=== PATIENT | female | born 1990 | race Asian ===

== ENCOUNTER 2023-11-07 22:41 | Observation (INO) | payer BC, SELFPAY ==
[2023-11-07 22:42] VITALS: BP 129/86; PULSE 104; RESP 18; TEMP 36.6; O2SAT 98; BMI 26.5
--- NOTE | 2023-11-07 23:02 | US_ITS ---
STUDY: ABDOMINAL ULTRASOUND - RIGHT UPPER QUADRANT REASON FOR VISIT: Female, 32 years old patient with abdominal pain. TECHNIQUE: Ultrasound evaluation of the right upper quadrant was performed with real-time and static badillo-scale imaging. TECHNICAL QUALITY: Adequate. COMPARISON: Prior comparison studies are not available for review at this time. FINDINGS: Liver: The liver measures 16.4 cm. There is increased echogenicity consistent with fatty infiltration. The bile ducts are within normal limits. There is hepatic color flow. The direction of portal flow is hepatopetal. There is no demonstrated mass lesion. Gallbladder: Normal distended gallbladder. The gallbladder wall measures 2 mm. There is a negative sonographic Catherine''s sign. There is no pericholecystic fluid. There are no gallstones. Common Bile Duct (C.B.D.): The common bile duct measures 3.6 mm. Pancreas: Normal size of the head, body and tail of the pancreas. There is normal echogenicity of the pancreas. There is no demonstrated pancreatic mass or cyst. Right Kidney: Normal size of the right kidney. The right kidney measures 10.2 x 4.1 x 4.4 cm. Normal renal cortex. The right cortex measures 1.4 cm. There is no demonstrated renal mass or cyst. There is no right hydronephrosis. US/Gallbladder IMPRESSION: 1. Hepatic steatosis. 2. No sonographic evidence for acute right upper quadrant abdominal disease. Electronically Signed: Yamile Booth MD at 0:23 EST ,
[2023-11-07] MEDS: Ketorolac 15 MG/ML Vial IV (23:17)
[2023-11-07] MEDS: Ondansetron 4 MG/2 ML Vial IV (23:17)
[2023-11-07] MEDS: 0.9% Normal Saline (1000mL) 1,000 ML 125 ML IV (23:18)
[2023-11-07 23:19] LABS: Absolute Lymphocyte Count 2.03 X10^3/uL (0.83-4.51); Absolute Neutrophil Count 13.6 X10^3/uL (2.0-7.7); Basophil# 0.05 X10^3/uL; Basophil% 0.3 % (0-1); Eosinophil# 0.01 X10^3/uL; Eosinophils% 0.1 % (0-5); Hematocrit 39.2 % (37-47); Hemoglobin 13.1 g/dL (12.0-15.0); Lymphocyte # 2.03 X10^3/ul (0.83-4.51); Lymphocyte % 12.3 % (19-41); Mean Corp Hgb Conc 33.4 g/dL (32-36); Mean Corpuscular Hgb 27.9 pg (27.0-32.0); Mean Corpuscular Volume 83.6 fL (81-99); Mean Platelet Vol. 8.9 fl (6.2-12.0); Monocyte# 0.74 X10^3/uL; Monocyte% 4.5 % (0-10); NRBC Flagged by Analyzer 0 % (0-5); Neutrophil # 13.55 X10^3/uL (2.7-7.7); Neutrophil % 82.4 % (47-70); Platelet Count 281 K/mm3 (150-450); RBC Distribution Width CV 11.9 % (11.6-14.6); RBC Distribution Width SD 35.4 fl (35.1-43.9); Red Blood Count 4.69 M/mm3 (4.2-5.4); White Blood Count 16.5 K/mm3 (4.4-11.0)
[2023-11-07 23:38] LABS: ALB/GLOB Ratio 1.1 RATIO (0.9-2.4); AST(SGOT) 9 U/L (15-37); Alanine Aminotransfer ALT/SGPT 14 U/L (13-56); Albumin, Serum 3.8 g/dL (3.2-5.0); Alkaline Phosphatase 55 U/L (45-117); Anion Gap 7 (5-15); BUN 8 mg/dL (7-18); BUN/Creat Ratio 12.6 RATIO (10-20); Calcium,Total 9.5 mg/dL (8.5-10.1); Chloride 106 mmol/L (98-107); Creatinine, Serum 0.64 mg/dL (0.55-1.02); EST Glomerular Filtration Rate 116 mL/min (>60); Est Glom Filt Rate - Afr Amer 140 mL/min (>60); Estimated Creatinine Clearance 106.32 ml/min; Globulin 3.6 g/dL (2.2-4.2); Glucose 117 mg/dL (74-106); Lipase 26 U/L (13-75); Potassium 3.7 mmol/L (3.5-5.1); Protein, Total 7.4 g/dL (6.4-8.2); Sodium Level 138 mmol/L (136-145)
[2023-11-07 23:42] LABS: Internal QC Validated? YES +Cl - CLEAR BKGD; Pregnancy, Serum, hCG Quali. NEGATIVE Negative
[2023-11-08] VITALS (12 sets, daily range): BP systolic 91–113; BP diastolic 58–87; PULSE 74–111; RESP 14–16; TEMP 36.3–37.4; O2SAT 91–99; BMI 26.3
--- NOTE | 2023-11-08 | APP_PTH ---
PATHOLOGY RESULTS PATIENT: TAWANA CAMILO LOC: [facility] U#:[id number] AGE/SX: 32/F ROOM: [place] [id number] RE11/08/[address]: Dr. Guy Harrell MD : 1990 BED: 1 DIS: 11/08/2023 SPEC #: [id number] RECD: 11/08/23 11:02 STATUS: KAYLIE MARTIN #: [id number] ARELIS: 11/08/23 00:[address]: Guy Harrell DEPT: SURGICAL PATHOLOGY RECD BY: Bianca Haynes ENTERED: 11/08/23 11:02 SP TYPE: APPENDIX OTHR DR: Dr. Kevan Lawler DO Tissues: Appendix, NOS Procedures: Surgery Specimen Level III HEADER OPERATION: Laparoscopic appendectomy PRE-OP DIAGNOSIS: Acute appendicitis TISSUE SUBMITTED: Appendix MICROSCOPIC DIAGNOSIS Appendix, appendectomy: Acute necrotizing appendicitis. Acute serositis. AM:ness 11/09/2023 MICROSCOPIC DESCRIPTION Slides are reviewed. GROSS DESCRIPTION Received in fixative is one container labeled with the patient's name and designated appendix. The specimen consists of a C-shaped appendix measuring 7.5 cm in length and up to 1.3 cm in diameter. The serosa is congested. No obvious perforation is noted. The lumen is filled with hemorrhagic fluid. No fecalith is identified. Shop Superintendent sections are submitted in one cassette. / SJ:ness 11/08/2023 TC:2 CPT: 13667
--- NOTE | 2023-11-08 00:28 | ED.VIS.GI ---
HPI <Dr. Delano Dhaliwal MD - Last Filed: 11/08/23 22:28> HPI - GI History of Present Illness Chief Complaint: Abd Pain Informant: patient Abdominal Pain/Flank Pain Onset: Today Context: Gradual Onset Timing: Continuous Quality: Aching Location: Epigastric, RUQ and LUQ Current Severity: Moderate Maximum Severity: Moderate Worsened by: - (Lying down) Nausea/Vomiting/Emesis GI Symptom: Positive for Nausea; Negative for Vomiting Diarrhea/Melena/Hematochezia GI Symptom: Negative for Diarrhea, Melena or Hematochezia Associated Symptoms Associated Symptoms: Negative for Dysuria, Frequency, Hematuria or Urgency Narrative Narrative: Healthy 32-year-old has been having abdominal discomfort upper bilateral for half of the day today, seem to be a while after a meal. Now whenever she lies down it seems to get worse. Sitting up makes it much better but still uncomfortable. She denies any fevers or chills. No pruritus, confusion, pain in her back or up into her chest. No history of any abdominal surgeries. Never had this before. She took some Tums and did not help. [facility] <Dr. Delano Dhaliwal MD - Last Filed: 11/08/23 22:28> [facility] Medical History (Updated 11/08/23 @ 22:[address] Delano Dhaliwal MD) Asthma History of pneumonia Home Medications acetaminophen 325 mg tablet 650 mg (2 x 325 mg) PO Q4H PRN PRN Pain 1-10 Or Fever #0 tabs 11/08/23 [Rx Last Taken Unknown] dicyclomine 10 mg capsule 20 mg (2 x 10 mg) PO Q6H PRN PRN abdominal pain #20 CAPSULES 11/08/23 [Rx Last Taken Unknown] oxycodone 5 mg tablet 5 - 10 mg (1 - 2 x 5 mg) PO Q4H PRN PRN Pain Score 4-10 5 days #15 tabs 11/08/23 [Rx Last Taken Unknown] pantoprazole 40 mg tablet,delayed release 40 mg PO BID 14 days #28 tabs 11/08/23 [Rx Last Taken Unknown] sucralfate 1 gram tablet 1 g PO .qid 10 days #40 tabs 11/08/23 [Rx Last Taken Unknown] Allergy/AdvReac Type Severity Reaction Status Date / Time cat dander Allergy Unknown Verified 11/07/23 22:44 Family History (Updated 11/26/19 @ 07:05 by Teresa You) Other CVA (cerebral vascular accident) Diabetes Hypertension Social History (Updated 10/15/20 @ 16:03 by Hollis RAMOS, PA) Smoking Status: Never smoker alcohol intake: current alcohol intake frequency: a few times a month Alcohol type: beer ROS <Dr. Delano Dhaliwal MD - Last Filed: 11/08/23 22:28> ROS ED Constitutional Constitutional ED: Denies chills or fever(s) Eyes Eyes: Denies change in vision or diplopia ENT ENT ED: Denies rhinorrhea or sore throat Cardiovascular Cardiovascular: Denies chest pain or palpitations Respiratory/Chest Respiratory/Chest: Denies cough or dyspnea Gastrointestinal Gastrointestinal: Reports abdominal pain, nausea and other Details: constipated earlier today, but had BM prior to coming here ; Denies diarrhea or vomiting Genitourinary Genitourinary ED: Denies dysuria, hematuria or urinary frequency Musculoskeletal Musculoskeletal: Denies back pain or neck pain Integumentary Denies abscess or rash Neurologic Neurologic: Denies headache(s), paresthesias or weakness Psychiatric Psychiatric: Denies anxiety or suicidal thoughts EXAM <Dr. Delano Dhaliwal MD - Last Filed: 11/08/23 22:28> Physical Exam Const Vital Signs: 11/07/23 22:42 11/08/23 00:41 11/08/23 02:00 Temperature 97.8 F Temperature Source Temporal Pulse Rate 104 H 84 90 Respiratory Rate 18 16 Respiratory Effort Respiratory Depth Respiratory Pattern Blood Pressure 129/86 H 113/87 H Blood Pressure Mean 100 95 Blood Pressure Source Blood Pressure Position Blood Pressure Location Pulse Ox 98 99 98 Oxygen Delivery Method Room Air Room Air 11/08/23 04:00 11/08/23 04:25 11/08/23 04:19 Temperature 99.3 F H Temperature Source Oral Pulse Rate 82 95 Respiratory Rate 16 16 Respiratory Effort Normal Non-Labored Respiratory Depth Normal Respiratory Pattern Normal Blood Pressure 107/76 106/79 Blood Pressure Mean 86 88 Blood Pressure Source Monitor Blood Pressure Position Semi-Fowlers Blood Pressure Location Right Arm Pulse Ox 98 95 Oxygen Delivery Method Room Air Room Air 11/08/23 04:25 Temperature 99.3 F H Temperature Source Oral Pulse Rate 95 Respiratory Rate 16 Respiratory Effort Respiratory Depth Respiratory Pattern Blood Pressure 106/79 Blood Pressure Mean 88 Blood Pressure Source Blood Pressure Position Blood Pressure Location Pulse Ox 95 Oxygen Delivery Method Room Air Positive well nourished and well developed General Appearance ED: well developed and NAD HEENT Reports moist mucous membranes normocephalic and atraumatic Eyes PERRL and EOMs intact bilaterally Neck full ROM and supple Resp normal respiratory effort and clear to auscultation bilaterally Cardio regular rate, regular rhythm and no murmurs GI non-distended GI Narrative: Tender in both upper quadrants, no guarding or rebound tenderness, no pulsatile mass or distention, otherwise benign abdomen. Auscultation: normoactive bowel sounds Palpation: soft Back/Spine no CVA tenderness General Back: other FROM Extremity normal to inspection General Extremety ED: Negative for edema, pulses abnormal or tenderness General Extremity: Negative for edema or pulses abnormal Neuro oriented x3, CN's II-XII intact bilaterally and no sensory deficits noted Sensorium / Orientation: awake and alert Motor Exam: strength 5/5 throughout Skin no rashes or lesions noted and no wounds <Dr. Eugene Rm DO - Last Filed: 11/08/23 03:42> Physical Exam Const Vital Signs: 11/07/23 22:42 11/08/23 00:41 11/08/23 02:00 Temperature 97.8 F Temperature Source Temporal Pulse Rate 104 H 84 90 Respiratory Rate 18 16 Respiratory Effort Respiratory Depth Respiratory Pattern Blood Pressure 129/86 H 113/87 H Blood Pressure Mean 100 95 Blood Pressure Source Blood Pressure Position Blood Pressure Location Pulse Ox 98 99 98 Oxygen Delivery Method Room Air Room Air 11/08/23 04:00 11/08/23 04:25 11/08/23 04:19 Temperature 99.3 F H Temperature Source Oral Pulse Rate 82 95 Respiratory Rate 16 16 Respiratory Effort Normal Non-Labored Respiratory Depth Normal Respiratory Pattern Normal Blood Pressure 107/76 106/79 Blood Pressure Mean 86 88 Blood Pressure Source Monitor Blood Pressure Position Semi-Fowlers Blood Pressure Location Right Arm Pulse Ox 98 95 Oxygen Delivery Method Room Air Room Air 11/08/23 04:25 Temperature 99.3 F H Temperature Source Oral Pulse Rate 95 Respiratory Rate 16 Respiratory Effort Respiratory Depth Respiratory Pattern Blood Pressure 106/79 Blood Pressure Mean 88 Blood Pressure Source Blood Pressure Position Blood Pressure Location Pulse Ox 95 Oxygen Delivery Method Room Air MDM <Dr. Delano Dhaliwal MD - Last Filed: 11/08/23 22:28> [facility] MDM Narrative Medical decision making narrative: Labs show leukocytosis, liver enzymes and lipase are normal. negative. Given the leukocytosis and location of her pain and ultrasound of the right upper quadrant was obtained emergently. There may be some fatty infiltration of the liver there according to radiology, but there is no acute cholecystitis radiographically and the sonographic Catherine's is negative. Patient was initially empirically treated with IV fluids, Zofran, Toradol. [place] her nausea but still in discomfort. She noted that when she was an ultrasound and lying left lateral decubitus, all the pain seem to be left upper quadrant. We discussed dyspepsia as well as peptic ulcer disease being in the differential, she then notes that prior to coming to the emergency department, she had a stool at home that was black and loose. She has taken no Pepto bismol today, and last time she took oral iron was 3 months ago. She does not have an elevated BUN to suggest significant upper GI bleeding, as I discussed with her but the definitive way to diagnose whether this is due to bleeding or not, which would lend itself more to a bleeding ulcer, would be to check a stool sample. She does not have to have a bowel movement and she refuses rectal exam at this time. She was amenable to doing a GI cocktail which was given along with Protonix. Assuming she has some improvement, plan will be to send her home with close outpatient follow-up on twice daily PPI, sucralfate, and dicyclomine to use as needed for pain. Lab Data Attestation: I reviewed the patient's lab results. Labs: Laboratory Results - last 24 hr 11/07/23 23:13 WBC 16.5 H RBC 4.69 Hgb 13.1 Hct 39.2 MCV 83.6 MCH 27.9 MCHC 33.4 RDW Std Deviation 35.4 RDW Coeff of Janes 11.9 Plt Count 281 MPV 8.9 Immature Gran % (Auto) 0.400 Neut % (Auto) 82.4 H Lymph % (Auto) 12.3 L Cole % (Auto) 4.5 Eos % (Auto) 0.1 Baso % (Auto) 0.3 Absolute Neuts (auto) 13.6 H Absolute Lymphs (auto) 2.03 Nucleated RBC % 0 Sodium 138 Potassium 3.7 Chloride 106 Carbon Dioxide 25.0 Anion Gap 7 BUN 8 Creatinine 0.64 Estim Creat Clear Calc 106.32 Est GFR (MDRD) Af Amer 140 Est GFR (MDRD) Non-Af 116 BUN/Creatinine Ratio 12.6 Glucose 117 H Calcium 9.5 Total Bilirubin 1.00 AST 9 L ALT 14 Alkaline Phosphatase 55 Total Protein 7.4 Albumin 3.8 Globulin 3.6 Albumin/Globulin Ratio 1.1 Lipase 26 Serum , Qual NEGATIVE Radiography Diagnostic Testing: Clinical Impression(s) from Imaging Studies Gallbladder Ultrasound 11/07/23 23:02 IMPRESSION: 1. Hepatic steatosis. 2. No sonographic evidence for acute right upper quadrant abdominal disease. Electronically Signed: Yamile Booth MD at 0:23 EST Reading Location ID and State: [id number] / [employer] , Service support , Abdomen/Pelvis CT 11/08/23 01:39 IMPRESSION: Findings are consistent with acute uncomplicated appendicitis. Electronically Signed: Yamile Booth MD at 3:20 EST Reading Location ID and State: [id number] / [employer] , Service support , ADDENDUM: 11/08/23 0328 IMPRESSION: Findings are consistent with acute uncomplicated appendicitis. N.B. : The above Results were Read Back by Yamile Booth MD to Eugene Rm DO, and understanding confirmed on 11/08/2023 03:21:22 (ET). Electronically Signed: Yamile Booth MD at 3:20 EST Reading Location ID and State: [id number] / [employer] , Service support , ADDENDUM: 11/08/23 0334 IMPRESSION: Findings are consistent with acute uncomplicated appendicitis. N.B. : The above Results were Read Back by Yamile Booth MD to Eugene Rm DO, and understanding confirmed on 11/08/2023 03:28:04 (ET). Electronically Signed: Yamile Booth MD at 3:20 EST Reading Location ID and State: [id number] / [employer] , Service support , <Dr. Eugene Rm, DO - Last Filed: 11/08/23 03:42> [facility] Narrative Medical decision making narrative: Labs show leukocytosis, liver enzymes and lipase are normal. negative. Given the leukocytosis and location of her pain and ultrasound of the right upper quadrant was obtained emergently. There may be some fatty infiltration of the liver there according to radiology, but there is no acute cholecystitis radiographically and the sonographic Catherine's is negative. Patient was initially empirically treated with IV fluids, Zofran, Toradol. [place] her nausea but still in discomfort. She noted that when she was an ultrasound and lying left lateral decubitus, all the pain seem to be left upper quadrant. We discussed dyspepsia as well as peptic ulcer disease being in the differential, she then notes that prior to coming to the emergency department, she had a stool at home that was black and loose. She has taken no Pepto bismol today, and last time she took oral iron was 3 months ago. She does not have an elevated BUN to suggest significant upper GI bleeding, as I discussed with her but the definitive way to diagnose whether this is due to bleeding or not, which would lend itself more to a bleeding ulcer, would be to check a stool sample. She does not have to have a bowel movement and she refuses rectal exam at this time. She was amenable to doing a GI cocktail which was given along with Protonix. Assuming she has some improvement, plan will be to send her home with close outpatient follow-up on twice daily PPI, sucralfate, and dicyclomine to use as needed for pain. Dr. Rm dictating: Patient signed out to me for monitoring and had received treatment for symptomatic control of epigastric pain and left upper quadrant pain. I did independently examine her as well and she did complain of symptoms in this area. She states that she felt better after the GI cocktail, PPI. She was also given some Bentyl here. Her pain did start to come back and on reexamination she does have some tenderness in the epigastric and left upper quadrant pain which is relieved by laying on the left side however she also has some right lower quadrant pain. We discussed getting a CT of the abdomen pelvis and she was amenable to this. CT of the abdomen pelvis shows uncomplicated acute appendicitis. Patient was given morphine, Zofran, a liter of normal saline. Discussed the case with Dr. Harrell who states that he will be here at 6 AM to see the patient and to take her to the OR. Patient is made n.p.o. Impression: 1. Leukocytosis 2. Acute appendicitis Lab Data Labs: Laboratory Results - last 24 hr 11/07/23 23:13 WBC 16.5 H RBC 4.69 Hgb 13.1 Hct 39.2 MCV 83.6 MCH 27.9 MCHC 33.4 RDW Std Deviation 35.4 RDW Coeff of Janes 11.9 Plt Count 281 MPV 8.9 Immature Gran % (Auto) 0.400 Neut % (Auto) 82.4 H Lymph % (Auto) 12.3 L Cole % (Auto) 4.5 Eos % (Auto) 0.1 Baso % (Auto) 0.3 Absolute Neuts (auto) 13.6 H Absolute Lymphs (auto) 2.03 Nucleated RBC % 0 Sodium 138 Potassium 3.7 Chloride 106 Carbon Dioxide 25.0 Anion Gap 7 BUN 8 Creatinine 0.64 Estim Creat Clear Calc 106.32 Est GFR (MDRD) Af Amer 140 Est GFR (MDRD) Non-Af 116 BUN/Creatinine Ratio 12.6 Glucose 117 H Calcium 9.5 Total Bilirubin 1.00 AST 9 L ALT 14 Alkaline Phosphatase 55 Total Protein 7.4 Albumin 3.8 Globulin 3.6 Albumin/Globulin Ratio 1.1 Lipase 26 Serum , Qual NEGATIVE Radiography Diagnostic Testing: Clinical Impression(s) from Imaging Studies Gallbladder Ultrasound 11/07/23 23:02 IMPRESSION: 1. Hepatic steatosis. 2. No sonographic evidence for acute right upper quadrant abdominal disease. Electronically Signed: Yamile Booth MD at 0:23 EST , Abdomen/Pelvis CT 11/08/23 01:39 IMPRESSION: Findings are consistent with acute uncomplicated appendicitis. Electronically Signed: Yamile Booth MD at 3:20 EST , ADDENDUM: 11/08/23 0328 IMPRESSION: Findings are consistent with acute uncomplicated appendicitis. N.B. : The above Results were Read Back by Yamile Booth MD to Eugene Rm DO, and understanding confirmed on 11/08/2023 03:21:22 (ET). Electronically Signed: Yamile Booth MD at 3:20 EST , ADDENDUM: 11/08/23 0334 IMPRESSION: Findings are consistent with acute uncomplicated appendicitis. N.B. : The above Results were Read Back by Yamile Booth MD to Eugene Rm DO, and understanding confirmed on 11/08/2023 03:28:04 (ET). Electronically Signed: Yamile Booth MD at 3:20 EST , Discharge Plan Triage Chief Complaint: Abd Pain ED Provider: Eugene Rm Dx/Rx/DC Orders Clinical Impression: Appendicitis, acute, Abdominal pain, LUQ, Melena Primary Care Provider: Kevan Lawler Disposition Disposition: Acute Care [facility] Discharge Date/Time: 11/08/23 04:09
--- OUTSIDE RECORDS SUMMARY | 2023-11-08 00:30 | XMS RPT_ITS | CCD ---
Author Name Unknown Address [address] [place] [address] Organization [facility] Care Team Providers Care Stamp Classifier Name Role Phone Kevan Montano DO Primary Care Provider [phone] KEVAN MONTANO Primary Care Unavailable KIANNA PATINO Attending Unavailable KEVAN MONTANO Primary Care Unavailable MICHI TOVAR Referring Unavailable KEVAN MONTANO Primary Care Unavailable KEVAN MONTANO Referring Unavailable KEVAN MONTANO Primary Care Unavailable KEVAN MONTANO Primary Care Unavailable KEVAN MONTANO Attending Unavailable KEVAN MONTANO Primary Care Unavailable TEJAL VILLAGRAN Attending Unavailable KEVAN MONTANO Primary Care Unavailable JANE DOHERTY Referring Unavailable JANE DOHERTY Attending Unavailable KEVAN MONTANO Primary Care Unavailable KEVAN MONTANO Primary Care Unavailable KEVAN MONTANO Primary Care Unavailable Allergies Allergy Classification Reported Allergen(s) Allergy Type Date of Onset Reaction(s) Facility (12 sources) Cat; Translations: [CATS] Allergy to substance 04-22-2014 [facility] Medications Current Medications Medication Drug Class(es) Dates Sig (Normalized) Sig (Original) amoxicillin 875 mg oral tablet (1 source) Penicillin-class Antibacterial Start: 04-13-2023 End: 04-20-2023 take 1 tablet by mouth twice daily amoxicillin (AMOXIL) 875 mg tablet Indications: Upper respiratory tract infection, unspecified type Take 1 tablet by mouth twice daily for 7 days. 14 tablet 0 04/13/2023 04/20/2023 Active Completed/Discontinued Medications Medication Drug Class(es) Dates Sig (Normalized) Sig (Original) [id number] 200 actuat albuterol 0.09 mg/actuat metered dose inhaler (12 sources) beta2-Adrenergic Agonist Start: 08-10-2022 take 2 puff(s) by inhalation every four hours as needed for wheezing albuterol HFA (VENTOLIN HFA) 90 mcg/actuation inhaler Indications: Viral URI with cough Inhale 2 Puffs as instructed every 4 hours as needed for wheezing/shortnes s of breath. 18 g 5 08/10/2022 Active Problems Active Problems Problem Classification Problem Date Documented Da te Episodic/Chronic Administrative/social admission (1 source) Advice given; Translations: [Other specified counseling] 08-01-2023 Episodic Anxiety disorders (15 sources) Mixed anxiety and depressive disorder; Translations: [Anxiety disorder, unspecified] Onset: 05-17-2015 Chronic Blindness and vision defects (1 source) Bilateral myopia of eyes; Translations: [Myopia, bilateral] 06-14-2023 Episodic Immunizations and screening for infectious disease (2 sources) Patient encounter status; Translations: [Encounter for immunization] Episodic Mood disorders (2 sources) Depressive disorder; Translations: [Depression, unspecified depression type] Chronic Mood disorders (1 source) Mood disorders; Translations: [Anxiety and depression] Onset: 05-17-2015 Nutritional deficiencies (13 sources) Vitamin D deficiency; Translations: [Vitamin D deficiency, unspecified] Onset: 09-04-2018 09-04-2018 Chronic Nutritional deficiencies (1 source) Iron deficiency; Translations: [Iron deficiency] Episodic Other nutritional; endocrine; and metabolic disorders (1 source) Weight gain; Translations: [Abnormal weight gain] 08-31-2023 Episodic Other nutritional; endocrine; and metabolic disorders (1 source) Abnormal weight gain; Translations: [Weight gain] Onset: 08-31-2023 Episodic Other screening for suspected conditions (not mental disorders or infectious disease) (1 source) Raised TSH level; Translations: [Other specified abnormal findings of blood chemistry] Episodic Other upper respiratory infections (2 sources) Viral upper respiratory tract infection; Translations: [Acute upper respiratory infection, unspecified] Episodic Otitis media and related conditions (1 source) Acute left otitis media; Translations: [Otitis media, unspecified, left ear] Episodic Unclassified (1 source) Acute cough; Translations: [Acute cough] Onset: 04-13-2023 Past or Other Problems Problem Classification Problem Date Documented Da te Episodic/Chronic Allergic reactions (11 sources) Eczema; Translations: [Dermatitis, unspecified] Onset: 09-04-2018 09-04-2018 Episodic Headache; including migraine (9 sources) Headache disorder; Translations: [Headache disorder] Onset: 12-08-2022 Episodic Malaise and fatigue (8 sources) Fatigue; Translations: [Other fatigue] Onset: 12-11-2022 Episodic Other acquired deformities (8 sources) Leg length inequality; Translations: [Unequal limb length (acquired), unspecified site] Onset: 12-11-2022 Episodic Other skin disorders (11 sources) Acne vulgaris; Translations: [Acne vulgaris] Onset: 04-22-2014 04-22-2014 Episodic Viral infection (12 sources) Verruca plantaris; Translations: [Plantar wart] Onset: 09-04-2018 09-04-2018 Episodic Results Test Name Value Interpretation Reference Range Facil ity Vital Signs Date Time Vital Sign Value Performing Clinician Cortney boone 08-31-2023 08:07-0400 Body weight 69.04 kg Jane Doherty CORE SHAPER SIDES.AVIONICS SUPERVISOR Work Phone: [facility] 08-31-2023 08:07-0400 Diastolic blood pressure 64 mm[Hg] Jane Doherty CORE SHAPER SIDES.AVIONICS SUPERVISOR Work Phone: [facility] 08-31-2023 08:07-0400 Heart rate 60 /min Jane Doherty CORE SH[employer]ER [employer].AVIONICS SUPERVISOR Work Phone: [facility] 08-31-2023 08:07-0400 Respiratory rate 14 /min Jane Doherty CORE SHAPER SIDES.AVIONICS SUPERVISOR Work Phone: [facility] 08-31-2023 08:07-0400 Systolic blood pressure 112 mm[Hg] Jane Doherty CORE SHAPER SIDES.AVIONICS SUPERVISOR Work Phone: [facility] 04-13-2023 10:32-0400 Body temperature 98.29 [degF] Michi Tovar CORE SHAPER SIDES.AVIONICS SUPERVISOR Work Phone: [facility] 04-13-2023 10:32-0400 Body weight 68.04 kg Michi Tovar CORE SHAPER SIDES.AVIONICS SUPERVISOR Work Phone: [facility] 04-13-2023 10:32-0400 Diastolic blood pressure 72 mm[Hg] Michi Tovar CORE SHAPER SIDES.AVIONICS SUPERVISOR Work Phone: [facility] 04-13-2023 10:32-0400 Heart rate 89 /min Michi Tovar CORE SH[employer]ER [employer]IDES.AVIONICS SUPERVISOR Work Phone: [facility] 04-13-2023 10:32-0400 Respiratory rate 18 /min Michi Tovar CORE SH[employer]ER SIDES.AVIONICS SUPERVISOR Work Phone: [facility] 04-13-2023 10:32-0400 SaO2% (BldA) [Mass fraction] 97 % Michi Tovar C[employer] SH[employer]ER SIDES.AVIONICS SUPERVISOR Work Phone: [facility] 04-13-2023 10:32-0400 Systolic blood pressure 118 mm[Hg] Michi Tovar CORE SHAPER SIDES.AVIONICS SUPERVISOR Work Phone: [facility] 12-08-2022 14:18-0500 Body height 161 cm Kevan Montano DO Work Phone: [facility] 12-08-2022 14:18-0500 Body temperature 98.71 [degF] Kevan Montano DO Work Phone: [facility] 12-08-2022 14:18-0500 Body weight 66.22 kg Kevan Montano DO Work Phone: [facility] 12-08-2022 14:18-0500 Diastolic blood pressure 70 mm[Hg] Kevan Montano DO Work Phone: [facility] 12-08-2022 14:18-0500 Heart rate 80 /min Kevan Montano DO Work Phone: [facility] 12-08-2022 14:18-0500 Respiratory rate 16 /min Kevan Montano DO Work Phone: [facility] 12-08-2022 14:18-0500 Systolic blood pressure 116 mm[Hg] Kevan Montano DO Work Phone: [facility] 10-23-2022 14:50-0500 Body weight 65.5 kg Tejal Villagran C[employer]ER [employer].AVIONICS SUPERVISOR Work Phone: [facility] 10-23-2022 14:50-0500 Diastolic blood pressure 82 mm[Hg] Tejal Tyshawn C[employer] SH[employer]ER SIDES.AVIONICS SUPERVISOR Work Phone: [facility] 10-23-2022 14:50-0500 Heart rate 87 /min Tejal Tyshawn C[employer] SH[employer]ER [employer]ES.AVIONICS SUPERVISOR Work Phone: [facility] 10-23-2022 14:50-0500 Respiratory rate 16 /min Tejal Tyshawn C[employer] SH[employer]ER [employer]ID[employer].AVIONICS SUPERVISOR Work Phone: [facility] 10-23-2022 14:50-0500 SaO2% (BldA) [Mass fraction] 95 % Tejal Tyshawn C[employer] SH[employer]ER SIDES.AVIONICS SUPERVISOR Work Phone: [facility] 10-23-2022 14:50-0500 Systolic blood pressure 112 mm[Hg] Tejal Tyshawn C[employer] SH[employer]ER SIDES.AVIONICS SUPERVISOR Work Phone: [facility] 08-10-2022 13:16-0400 Body weight 64.95 kg Tejal Tyshawn C[employer] SH[employer]ER SIDES.AVIONICS SUPERVISOR Work Phone: [facility] 08-10-2022 13:16-0400 Diastolic blood pressure 76 mm[Hg] Tejal Tyshawn C[employer] SH[employer]ER SIDES.AVIONICS SUPERVISOR Work Phone: [facility] 08-10-2022 13:16-0400 Heart rate 102 /min Tejal Tyshawn C[employer] SH[employer]ER SIDES.AVIONICS SUPERVISOR Work Phone: [facility] 08-10-2022 13:16-0400 Respiratory rate 18 /min Tejal Tyshawn C[employer] SH[employer]ER SIDES.AVIONICS SUPERVISOR Work Phone: [facility] 08-10-2022 13:16-0400 SaO2% (BldA) [Mass fraction] 98 % Tejal Tyshawn C[employer] SH[employer]ER SIDES.AVIONICS SUPERVISOR Work Phone: [facility] 08-10-2022 13:16-0400 Systolic blood pressure 102 mm[Hg] Tejal Tyshawn C[employer] SH[employer]ER SIDES.AVIONICS SUPERVISOR Work Phone: [facility] Encounters Encounter Date Encounter Type Care Provider Facility Start: 08-31-2023 End: [facility] Start: 08-31-2023 End: 08-31-2023 Patient encounter procedure Janecameron Doherty C[employer] SH[employer]ER [employer]IDES.AVIONICS SUPERVISOR Work Phone: [facility] Procedures Date Procedure Procedure Detail Performing Clinician Start: 08-31-2023 INFLUENZA VACCINE, A GE 6 MO - 64 YR, QUADRIVALENT (AFLURIA, FLULAVAL, FLUZONE) Janecameron Doherty CORE SHAPER SIDES.AVIONICS SUPERVISOR Work Phone: Start: 08-10-2022 INFLUENZA VACCINE QUADRIVALENT 6 MO - 64 YRS IM Tejal Tyshawn C[employer] SHAPER SIDES.AVIONICS SUPERVISOR Work Phone: Plan of Treatment Date Care Activity Detail Author Start: 03-27-2032 Urine microalbumin profile [facility] Start: 01-07-2026 Urine microalbumin profile DTA P,TDAP,TD (2 - Td or Tdap) [facility] Start: 08-31-2024 Covid-19 Vaccine ( season) Covid-19 Vaccine ( season) [facility] Immunizations Immunization Date Immunization Notes Care Provider Jennifer marshall 08-31-2023 influenza, injectabl e, quadrivalent, contains preservative Jane Doherty C[employer].AVIONICS SUPERVISOR Work Phone: [facility] 08-10-2022 influenza, injectabl e, quadrivalent, contains preservative Tejal Tyshawn C[employer].AVIONICS SUPERVISOR Work Phone: [facility] 08-10-2022 influenza virus vaccine, unspecified formulation Bibiana Long C[employer] SH[employer].AVIONICS SUPERVISOR Work Phone: [facility] 03-27-2022 tetanus toxoid, redu km diphtheria toxoid, and acellular pertussis vaccine, adsorbed Tejal Tyshawn C[employer] SH[employer]ER [employer]IDES.AVIONICS SUPERVISOR Work Phone: [facility] 09-04-2018 influenza, injectabl e, quadrivalent, contains preservative Yuridia Tannhof C[employer] SHAPER SIDES.AVIONICS SUPERVISOR Work Phone: [facility] Work Phone: 01-07-2016 tetanus toxoid, redu km diphtheria toxoid, and acellular pertussis vaccine, adsorbed Yuridia Tannhof C[employer] SH[employer]ER SIDES.AVIONICS SUPERVISOR Work Phone: [facility] Work Phone: 08-17-2015 influenza, injectabl e, quadrivalent, contains preservative Yuridia Figueredo CORE SHAPER SIDES.AVIONICS SUPERVISOR Work Phone: [facility] Payers Date Payer Category Payer Unknown [employer] PPO [id number] 2023-Present [phone] [address] [place] [address] PPO [id number] 2023 Unknown [id number] 2021 Medicaid [employer] [employer] [id number] 2021-Present [phone] [address] [place] [address] Medicaid [id number] 2021 Medicaid [id number] 2021 Medicaid [id number] Social History Date Type Detail Facility Start: 04-22-2014 End: 08-10-2022 Tobacco smoking status NHIS Never smoked tobacco [facility] Start: 04-22-2014 End: 08-10-2022 Tobacco use and exposure Smokeless tobacco non-user [facility] Start: 11-25-2021 End: 08-31-2023 Alcohol intake Current non-drinker of alcohol (finding) [facility] Start: 1990 Sex Assigned At Not on file C [facility] Start: 08-08-2022 End: 10-22-2022 History SDOH Alcohol Frequency 1 [facility] Start: 08-08-2022 End: 10-22-2022 History SDOH Alcohol Std Drinks 0 [facility] Start: 08-08-2022 End: 10-22-2022 History SDOH Social Connections Phone 5 [facility] Start: 08-08-2022 End: 10-22-2022 History SDOH Social Connections Membership 2 [facility] Start: 08-08-2022 History SDOH Social Connections Meetings 98 [facility] Start: 08-08-2022 End: 10-22-2022 History SDOH Social Connections Living 7 [facility] Start: 08-08-2022 End: 10-22-2022 History SDOH Physical Activity DPW 3 [facility] Start: 08-08-2022 History SDOH Financial 4 [facility] Start: 07-31-2022 End: 08-10-2022 Exposure to SARS-CoV-2 (event) Not sure [facility] Start: 10-22-2022 End: 06-14-2023 History of Social function [facility] Start: 10-22-2022 End: 06-14-2023 Social connection and isolation panel [facility] Do you belong to any clubs or organizations such as christianity groups, unions, fraternal or athletic groups, or school groups? No [facility] Are you now , , , , never or living with a partner? Never [facility] How often to you hav e a drink containing alcohol? Never [facility] How many standard dr inks containing alcohol do you have on a typical day? Patient does not drink [facility] Do you feel stress - tense, restless, nervous, or anxious, or unable to sleep at night because your mind is troubled all the time - these days [OSQ] To some extent [facility] (I/We) worried wheth er (my/our) food would run out before (I/we) got money to buy more. Never true [facility] Clinical Notes 02-14-2022 to 08-31-2023 Rakel Willis LPN - 08/31/2023 8:46 AM Jane Guerra APRN.GERA - 08/31/2023 8:09 AM Bibiana Reveles APRN.CNP - 08/01/2023 10:21 AM EDTPatient Instructions Note Date & Type Note Facility 08-31-2023 Note HNO ID: [id number] Author: Jane Doherty APRN.CNP Service: ? Author Type: Nurse Practitioner Type: Progress Notes Filed: 08/31/2023 10:34 AM Note Text: Chief Complaint Patient presents with: weight gain: Pt states since march has gain ed 15-20 lbs with no difference in activity or diet HPI Nicki Hooper is a 32 year old female who presents here today for Above Complaints.. Nicki is an established patient of Dr. Bucky DO. She is a new patient to me today. Concerns today.. Weight gain --- Has noticed a 15-20 lb weight gain from the end of March. Unintended. Switched jobs prior to this due to stressful prior job. Current job is much less stressful and less overwhelming. She thought this would improve weight loss journey but it has not. Feels anxiety/stress is improved from prior. Has tried numerous diet regimens such as calorie counting with Lose It Evert and has tried intermittent fasting with 9am - 4pm schedule. No weight loss with either of these regimens. Exercise: goes to the gym 3-4x per week, 30-40 minutes of cardio and 30 minutes of weight lifting. July 31 had COVID, has taken a break from gym since to recover. Feeling back to normal besides getting winded more easily with strenuous exercise. Denies any other symptoms contributing to weight gain. BMI: 26.63 No other concerns or complaints. Past medical history, appointments, medications, allergies reviewed. Previous Medical History PAST MEDICAL HISTORY Diagnosis Date Asthma, mild intermittent as a child, rare with URI Pneumonia age 20 after influenza Vitamin D deficiency 04/2014 Previous Surgical History PAST SURGICAL HISTORY Procedure Laterality Date NONE Family History FAMILY HISTORY Problem Relation Age of Onset Hypertension Father Thyroid Mother Diabetes Maternal Grandmother HTN Breast Cancer Maternal Aunt 50 No Ocular Disease No Family History Patient Allergies ALLERGIES Allergen Reactions Cats Rash Current Medications Current Outpatient Medications on File Prior to Visit Medication Sig albuterol HFA (VENTOLIN HFA) 90 mcg/actuation inhaler Inhale 2 Puffs as instructed every 4 hours as needed for wheezing/shortness of breath. FLUoxetine (PROZAC) 40 mg capsule Take 1 capsule by mouth once daily. No current facility-administered medications on file prior to visit. Social History Social History Tobacco Use Smoking status: Never Smokeless tobacco: Never Vaping Use Vaping Use: Never used Substance Use Topics Alcohol use: No Drug use: No REVIEW OF SYSTEMS: as above Reviewed relevant PMHx, PSHx, Social Hx, current medications and allergies. Review of Symptoms REVIEW OF SYSTEMS See HPI. EXAM: BP 112/64 (BP Site: Left Arm, BP Position: Sitting, BP Cuff Size: Regular Adult) Pulse 60 Resp 14 Wt 69 kg (152 lb 3.2 oz) LMP 07/09/2023 (Exact Date) BMI 26.63 kg/m? General Appearance: Well appearing, alert, in no acute distress, well-hydrated, well nourished.. Skin: Skin color, texture, turgor normal, no suspicious rashes or lesions. Head: Normocephalic, no masses, lesions, tenderness or abnormalities. Lungs: Lungs clear to auscultation. No wheezing, rhonchi, rales.. Heart: RRR without murmur, gallop, or rubs. No ectopy. Health Maintenance List Hepatitis C Screening Never done HIV Screening Never done Pap Testing Never done HPV Testing Never done Influenza Vaccine(1) due on 07/13/2023 Covid-19 Vaccine( season) due on 08/31/2024 DTaP,Tdap,Td Vaccine(9 - Td or Tdap) due on 03/27/2032 Hepatitis B Vaccine Completed HPV Vaccine Completed ASSESSMENT/PLAN: 1. Weight gain - ICD9: 783.1, ICD10: R63.5 (primary diagnosis) Lab work as below to make sure no biological cause for weight gain. Discussed intermittent fasting regimen and different diet plan options. Continue/ restart with exercise regimen. Focus on diet and exercise x 3 months and RTO in 3 months to stay accountable and reassess weight loss journey. Goal weight to be below BMI of 25. - TSH BLD - T3 BLD - T4 FREE/FREE THYROX - COMP METABOLIC PANEL - CBC + DIFF - VITAMIN D 25 HYDROXY 2. Encounter for immunization - ICD9: V03.89, ICD10: Z23 - INFLUENZA VACCINE, AGE 6 MO - 64 YR, QUADRIVALENT (AFLURIA, FLULAVAL, FLUZONE) RTO in 3 months, sooner if needed. Prescription instructions reviewed with patient as applicable. Potential red flag symptoms discussed with the patient. Reviewed appropriate action plan to take if red flag symptoms occur. Patient agreeable to treatment plan. Jane Manning APRN.AVIONICS SUPERVISOR [address] [place] [address] [facility] 08-31-2023 Nurse Note Pt receives flu vaccine in office today as ordered. Tolerated well. documented in this encounter [facility] 08-31-2023 History of Present illness Narrative Chief Complaint Patient presents with: weight gain: Pt states since march has gain ed 15-20 lbs with no difference in activity or diet HPI Nicki Hooper is a 32 year old female who presents here today for Above Complaints.. Nicki is an established patient of Dr. Bucky DO. She is a new patient to me today. Concerns today.. Weight gain --- Has noticed a 15-20 lb weight gain from the end of March. Unintended. Switched jobs prior to this due to stressful prior job. Current job is much less stressful and less overwhelming. She thought this would improve weight loss journey but it has not. Feels anxiety/stress is improved from prior. Has tried numerous diet regimens such as calorie counting with Lose It Evert and has tried intermittent fasting with 9am - 4pm schedule. No weight loss with either of these regimens. Exercise: goes to the gym 3-4x per week, 30-40 minutes of cardio and 30 minutes of weight lifting. July 31 had COVID, has taken a break from gym since to recover. Feeling back to normal besides getting winded more easily with strenuous exercise. Denies any other symptoms contributing to weight gain. BMI: 26.63 No other concerns or complaints. Past medical history, appointments, medications, allergies reviewed. Previous Medical History PAST MEDICAL HISTORY Diagnosis Date Asthma, mild intermittent as a child, rare with URI Pneumonia age 20 after influenza Vitamin D deficiency 04/2014 Previous Surgical History PAST SURGICAL HISTORY Procedure Laterality Date NONE Family History FAMILY HISTORY Problem Relation Age of Onset Hypertension Father Thyroid Mother Diabetes Maternal Grandmother HTN Breast Cancer Maternal Aunt 50 No Ocular Disease No Family History Patient Allergies ALLERGIES Allergen Reactions Cats Rash Current Medications Current Outpatient Medications on File Prior to Visit Medication Sig albuterol HFA (VENTOLIN HFA) 90 mcg/actuation inhaler Inhale 2 Puffs as instructed every 4 hours as needed for wheezing/shortness of breath. FLUoxetine (PROZAC) 40 mg capsule Take 1 capsule by mouth once daily. No current facility-administered medications on file prior to visit. Social History Social History Tobacco Use Smoking status: Never Smokeless tobacco: Never Vaping Use Vaping Use: Never used Substance Use Topics Alcohol use: No Drug use: No REVIEW OF SYSTEMS: as above Reviewed relevant PMHx, PSHx, Social Hx, current medications and allergies. Review of Symptoms REVIEW OF SYSTEMS See HPI. EXAM: BP 112/64 (BP Site: Left Arm, BP Position: Sitting, BP Cuff Size: Regular Adult) Pulse 60 Resp 14 Wt 69 kg (152 lb 3.2 oz) LMP 07/09/2023 (Exact Date) BMI 26.63 kg/m General Appearance: Well appearing, alert, in no acute distress, well-hydrated, well nourished.. Skin: Skin color, texture, turgor normal, no suspicious rashes or lesions. Head: Normocephalic, no masses, lesions, tenderness or abnormalities. Lungs: Lungs clear to auscultation. No wheezing, rhonchi, rales.. Heart: RRR without murmur, gallop, or rubs. No ectopy. Health Maintenance List Hepatitis C Screening Never done HIV Screening Never done Pap Testing Never done HPV Testing Never done Influenza Vaccine(1) due on 07/13/2023 Covid-19 Vaccine(5 - 2022- season) due on 08/31/2024 DTaP,Tdap,Td Vaccine(9 - Td or Tdap) due on 03/27/2032 Hepatitis B Vaccine Completed HPV Vaccine Completed ASSESSMENT/PLAN: 1. Weight gain - ICD9: 783.1, ICD10: R63.5 (primary diagnosis) Lab work as below to make sure no biological cause for weight gain. Discussed intermittent fasting regimen and different diet plan options. Continue/ restart with exercise regimen. Focus on diet and exercise x 3 months and RTO in 3 months to stay accountable and reassess weight loss journey. Goal weight to be below BMI of 25. - TSH BLD - T3 BLD - T4 FREE/FREE THYROX - COMP METABOLIC PANEL - CBC + DIFF - VITAMIN D 25 HYDROXY 2. Encounter for immunization - ICD9: V03.89, ICD10: Z23 - INFLUENZA VACCINE, AGE 6 MO - 64 YR, QUADRIVALENT (AFLURIA, FLULAVAL, FLUZONE) RTO in 3 months, sooner if needed. Prescription instructions reviewed with patient as applicable. Potential red flag symptoms discussed with the patient. Reviewed appropriate action plan to take if red flag symptoms occur. Patient agreeable to treatment plan. Jane Manning APRN.CNP [id number] [place] [address] documented in this encounter [facility] 08-01-2023 Note HNO ID: [id number] Author: Bibiana Long APRN.CNP Service: ? Author Type: Nurse Practitioner Type: Progress Notes Filed: 08/01/2023 10:36 AM Note Text: Telemedicine Evaluation for COVID-19 Infection MyChart Zoom Video Visit was used for evaluation of this patient. I have communicated my name and active licensure. The patient's identity and physical location were verified at the time of this visit. Either the patient or their legal sales representative leather goods has been informed of the risks and benefits of -- and alternatives to -- treatment through a remote evaluation and consents to proceed with the evaluation remotely. SUBJECTIVE Nicki Hooper is a 32 year old female who presents with 4 days of symptoms that are worsening. Patient was seen in [facility] express clinic and tested for COVID19 and tested positive. She is interested in antiviral Symptoms include: Fever (?100.4F): No or Chills: Yes Cough: Yes Shortness of breath: Yes or Difficulty breathing: No Fatigue: Yes Muscle aches: Yes Headache: Yes New loss of smell or taste: No Sore throat: Yes Nasal congestion: No or Rhinorrhea: No Nausea: No or Vomiting: No Diarrhea: No OTC meds/remedies that patient has tried: albuterol. High risk category assessment Chronic lung disease Exposures: Sick contacts? No Family or close contacts with confirmed/probable COVID-19 in last 14 days? No OBJECTIVE VIDEO EXAM GENERAL: well appearing, alert, in no acute distress HEENT: no conjunctival injection, pupils equal, moist mucous membranes, pharyngeal erythema noted, sinuses non-tender to self-palpation, and palpable cervical adenopathy PULMONARY: breathing comfortably on room air , coughing, and no wheezing noted ASSESSMENT/PLAN (U07.1) COVID-19 virus infection (primary encounter diagnosis) (Z71.89) Advice given about COVID-19 virus infection - Discussed symptom monitoring and supportive care - Red flag symptoms requiring follow up discussed - Discussed pertinent side effects of medications. Patient verbalized understanding. - Discussed CDC precautions for COVID, guidelines for isolation, and educating others on guidelines for quarantine if indicated. AVS instructions reviewed with patient. Please refer to AVS instructions for additional plan and education. - Discussed symptoms/conditions warranting urgent or immediate evaluation and/or when to return to care - All questions answered. Patient verbalized understanding and agreeable with the plan. The following approved medication requests have been transmitted electronically. Requested Prescriptions Signed Prescriptions Disp Refills nirmatrelvir tablet 300 mg (150 mg x 2) and ritonavir tablet 100 mg in a dose pack (PAXLOVID) 30 tablet 0 Sig: Administer TWO pink nirmatrelvir 150 mg tablets and ONE white ritonavir 100 mg tablet for a total of three tablets twice daily. Jqpiqafravuzwpk-Grjigllfa-ED (BROMFED DM) 2-30-10 mg/5 mL syrup 120 mL 0 Sig: Take 5 mL by mouth four times daily as needed for up to 10 days. Bibiana Long APRN.GERA Nirmatrelvir/Ritonavir (Paxlovid) Considerations Paxlovid is FDA-approved for treatment of mild to moderate COVID-19 in adults who are at high risk for progression to severe COVID-19. Consider use of Paxlovid in the following examples of high risk patients (list is not all inclusive): Age over 65 years Cardiovascular and cerebrovascular disease Chronic disease state (kidney, liver, lung) Diabetes (type 1 or type 2) Immunocompromised state (cancer, solid organ or blood stem cell transplant, HIV) Obesity Paxlovid warnings include serious drug interactions (co-administration with drugs highly dependent on CYP3A for clearance), hypersensitivity reactions, hepatotoxicity, and risk of HIV-1 resistance development. Bibiana Long APRN.GREA August 01, 2023 10:36 AM This patient encounter involved the screening or treatment of novel coronavirus infection (COVID-19). [facility] 08-01-2023 History of Present illness Narrative Telemedicine Evaluation for COVID-19 Infection MyChart Zoom Video Visit was used for evaluation of this patient. I have communicated my name and active licensure. The patient's identity and physical location were verified at the time of this visit. Either the patient or their legal sales representative leather [employer] has been informed of the risks and benefits of -- and alternatives to -- treatment through a remote evaluation and consents to proceed with the evaluation remotely. SUBJECTIVE Nicki Hooper is a 32 year old female who presents with 4 days of symptoms that are worsening. Patient was seen in [facility] express clinic and tested for COVID19 and tested positive. She is interested in antiviral Symptoms include: Fever (?100.4F): No or Chills: Yes Cough: Yes Shortness of breath: Yes or Difficulty breathing: No Fatigue: Yes Muscle aches: Yes Headache: Yes New loss of smell or taste: No Sore throat: Yes Nasal congestion: No or Rhinorrhea: No Nausea: No or Vomiting: No Diarrhea: No OTC meds/remedies that patient has tried: albuterol. High risk category assessment Chronic lung disease Exposures: Sick contacts? No Family or close contacts with confirmed/probable COVID-19 in last 14 days? No OBJECTIVE VIDEO EXAM GENERAL: well appearing, alert, in no acute distress HEENT: no conjunctival injection, pupils equal, moist mucous membranes, pharyngeal erythema noted, sinuses non-tender to self-palpation, and palpable cervical adenopathy PULMONARY: breathing comfortably on room air , coughing, and no wheezing noted ASSESSMENT/PLAN (U07.1) COVID-19 virus infection (primary encounter diagnosis) (Z71.89) Advice given about COVID-19 virus infection - Discussed symptom monitoring and supportive care - Red flag symptoms requiring follow up discussed - Discussed pertinent side effects of medications. Patient verbalized understanding. - Discussed CDC precautions for COVID, guidelines for isolation, and educating others on guidelines for quarantine if indicated. AVS instructions reviewed with patient. Please refer to AVS instructions for additional plan and education. - Discussed symptoms/conditions warranting urgent or immediate evaluation and/or when to return to care - All questions answered. Patient verbalized understanding and agreeable with the plan. The following approved medication requests have been transmitted electronically. Requested Prescriptions Signed Prescriptions Disp Refills nirmatrelvir tablet 300 mg (150 mg x 2) and ritonavir tablet 100 mg in a dose pack (PAXLOVID) 30 tablet 0 Sig: Administer TWO pink nirmatrelvir 150 mg tablets and ONE white ritonavir 100 mg tablet for a total of three tablets twice daily. Usdlrsunfvkqicg-Ruwrgeltm-ZF (BROMFED DM) 2-30-10 mg/5 mL syrup 120 mL 0 Sig: Take 5 mL by mouth four times daily as needed for up to 10 days. Bibiana Long APRN.CNP Nirmatrelvir/Ritonavir (Paxlovid) Considerations Paxlovid is FDA-approved for treatment of mild to moderate COVID-19 in adults who are at high risk for progression to severe COVID-19. Consider use of Paxlovid in the following examples of high risk patients (list is not all inclusive): Age over 65 years Cardiovascular and cerebrovascular disease Chronic disease state (kidney, liver, lung) Diabetes (type 1 or type 2) Immunocompromised state (cancer, solid organ or blood stem cell transplant, HIV) Obesity Paxlovid warnings include serious drug interactions (co-administration with drugs highly dependent on CYP3A for clearance), hypersensitivity reactions, hepatotoxicity, and risk of HIV-1 resistance development. Bibiana Long APRN.CNP August 01, 2023 10:36 AM This patient encounter involved the screening or treatment of novel coronavirus infection (COVID-19). documented in this encounter [facility] 08-01-2023 Instructions Bibiana Long APRN.CNP - 08/01/2023 10:21 AM EDT Images from the original note were not included. Resources for Managing Anxiety During COVID Crisis https://www.virusanxiety.com https://www.cdc.gov/coronavirus/2 019-ncov/prepare/managing-stress- anxiety.html https://coronavirus.[place].gov/wps/ portal/gov/covid-19/home/resource s/oajiptrjf-amn-joxgnj-coping-wit t-zbj-oitmr-19-pandemic www.psychologytoday.Lán[place]/us/blog/imelda amzariegosih-buzqn-nxocqbdwcxjm//how- ruiycb-vwaqqufqiib-pjqifrh https://www.[employer]/u s/blog/yyy-naizr-vxsxlrk//1 3-xanb-vavhsxlco-calm-positivity- now https://www.[employer]/u s/blog/experimentations//7- ncrhkkeparl-hgazyepygrj-lcooahsgs g-adversity How to Protect Yourself & Others from COVID-19 Wash your hands often Wash your hands often with soap and water for at least 20 seconds especially after you have been in a public place, or after blowing your nose, coughing, or sneezing. If soap and water are not readily available, use a hand tours hostess that contains at least 60% alcohol. Cover all surfaces of your hands and rub them together until they feel dry. Avoid touching your eyes, nose, and mouth with unwashed hands. Avoid close contact Inside your home: Avoid close contact with people who are sick. If possible, maintain 6 feet between the person who is sick and other household members. Outside your home: Put 6 feet of distance between yourself and people who don't live in your household. Cover your mouth and nose with a mask when around others Masks help prevent you from getting or spreading the virus. You could spread COVID-19 to others even if you do not feel sick. Everyone should wear a mask in public settings and when around people who don't live in your household, especially when other social distancing measures are difficult to maintain. Masks should not be placed on young children under age 2, anyone who has trouble breathing, or is unconscious, incapacitated or otherwise unable to remove the mask without assistance. Cover coughs and sneezes Always cover your mouth and nose with a tissue when you cough or sneeze or use the inside of your elbow and do not spit. Throw used tissues in the trash. Immediately wash your hands with soap and water for at least 20 seconds. Clean and disinfect Clean AND disinfect frequently touched surfaces daily. This includes tables, doorknobs, light switches, countertops, handles, desks, phones, keyboards, toilets, faucets, and sinks. Monitor Your Health Daily Be alert for symptoms. Watch for fever, cough, shortness of breath, or other symptoms of COVID-19. Especially important if you are running essential errands, going into the office or workplace, and in settings where it may be difficult to keep a physical distance of 6 feet. Take your temperature if symptoms develop. Don't take your temperature within 30 minutes of exercising or after taking medications that could lower your temperature, like acetaminophen. Travel Skip events that put you in contact with large groups of people (sporting events, concerts, [employer] alcocer, etc). Avoid unnecessary domestic and international travel, including travel through large international airports. If traveling, wipe down your airplane seat (and tray) with a disinfecting wipe. Office Visits If you have a fever, cough or shortness of breath, or are otherwise concerned you have COVID-19, we ask that you do not come to any [facility] facility without calling your primary care physician or speaking to a provider using a virtual visit using [facility]. You will be evaluated to determine if you require being seen in person or if you meet CDC guidelines for testing for COVID-19 based on symptoms, travel and exposures. If you meet criteria for testing, your [employer] provider or primary care physician will advise how to proceed with testing Immunosuppression There is no need to stop your immunosuppressive medications preemptively. If you become sick, please let your doctor know, and discuss with them prior to stopping any medications. At this point, we have no knowledge that patients on immunosuppressive medications are at higher risk of COVID-19 infection. People with weakened immune systems are at higher risk of getting severely sick from SARS-CoV-2, the virus that causes COVID-19. They may also remain infectious for a longer period of time than others with COVID-19, but we cannot confirm this until we learn more about this new virus. Steps You Can Take to Protect Your Health Continue your regular treatment plan. Don't stop any medications or treatments without talking to your doctor. Discuss any concerns about your treatment with your doctor. Keep your regularly scheduled medical appointments. Talk to your doctor about steps they are taking to reduce risk of exposure to COVID-19 in the office. Use telehealth services whenever possible if recommended by your doctor. Ensure that you are getting necessary tests prescribed by your doctor. Seek urgent medical care if you are feeling unwell. Talk to your doctor, insurer, and pharmacist about getting an emergency supply of prescription medications. Make sure you have at least 30 days of prescription medications, tsdb-pmi-rjksggt medicines, and supplies on hand in case you need or want to stay home for several weeks. Talk to your doctor or pharmacist about ways to receive your medications by mail. Take steps to care for your emotional health. Fear and anxiety about COVID-19 can be overwhelming and cause strong emotions. It is natural to feel concerned or stressed about COVID-19. - Learn more about stress and coping with anxiety here. Call your healthcare provider if stress gets in the way of your daily activities for several days in a row. If you are feeling overwhelmed with emotions like sadness, depression, or anxiety, or feel like you want to harm yourself or others: Call 301 if you feel like you want to harm yourself or others Visit the Disaster Distress Helpline call , or [place] [address] Visit the National Domestic Violence Hotline or call and TTY Visit the National Suicide Prevention Lifeline or call and TTY or text Most importantly, don't panic. By following basic prevention measures such as hand hygiene and cover your cough, you are helping to keep yourself and others healthy. Additional information can be found on the CDC and [facility] web sites: https://www.cdc.gov/coronavirus/2 019-nCoV/index.html https://[facility].org/coron avirus Beginning Home Isolation Isolation is used to separate people infected with SARS-CoV-2, the virus that causes COVID-19, from people who are not infected. People who are in isolation should stay home until it s safe for them to be around others. In the home, anyone sick or infected should separate themselves from others by staying in a specific sick room or area and using a separate bathroom (if available). Isolation or Quarantine: What's the difference? Quarantine keeps someone who might have been exposed to the virus away from others. Isolation keeps someone who is infected with the virus away from others, even in their home. Who needs to isolate People who have COVID-19 People who have symptoms of COVID-19 and are able to recover at home People who have no symptoms (are asymptomatic) but have tested positive for infection with SARS-CoV-2 Steps to take Stay home except to get medical care Monitor your symptoms. Stay in a separate room from other household members, if possible Use a separate bathroom, if possible Avoid contact with other members of the household and pets Don t share personal household items, like cups, towels, and utensils Wear a mask when around other people, if you are able to When to seek emergency medical attention Look for emergency warning signs* for COVID-19. If someone is showing any of these signs, seek emergency medical care immediately: Trouble breathing Persistent pain or pressure in the chest New confusion Inability to wake or stay awake Bluish lips or face *This list is not all possible symptoms. Please call your medical provider for any other symptoms that are severe or concerning to you. Call 911 or call ahead to your local emergency facility: Notify the transfer station operator that you are seeking care for someone who has or may have COVID-19. Ending Home Isolation - When you can be around others after you had or likely had COVID-19 When you can be around others after you had or likely had COVID-19 If You Test Positive for COVID-19 (Isolation) Everyone, regardless of vaccination status: Stay home for 5 days. Note: Day 0 is your first day of symptoms or the date of collection of a positive viral test if no symptoms. Day 1 is the first full day after symptoms developed or test specimen was collected. If you have no symptoms or your symptoms are resolving after 5 days, you can leave your house. Continue to wear a mask around others for 5 additional days. If you have a fever, continue to stay home until your fever resolves, even if it is longer than 5 days. If You Were Exposed to Someone with COVID-19 (Quarantine) If you: 1. Have been boosted OR 2. Completed the primary series of Pfizer or Moderna vaccine within the last 6 months OR 3. Completed the primary series of J&J vaccine within the last 2 months THEN: 1. Wear a mask around others for 10 days. 2. Test on day 5, if possible. If you develop symptoms get a test and stay home. If You Were Exposed to Someone with COVID-19 (Quarantine) If you: 1. Completed the primary series of Pfizer or Moderna vaccine over 6 months ago and are not boosted OR 2. Completed the primary series of J&J over 2 months ago and are not boosted OR 3. Are unvaccinated THEN: 1. Stay home for 5 days. After that continue to wear a mask around others for 5 additional days. 2. If you can't quarantine you must wear a mask for 10 days. 3. Test on day 5 if possible. If you develop symptoms get a test and stay home. I had COVID-19 or I tested positive for COVID-19 and I have a weakened immune system If you have a weakened immune system (immunocompromised) due to a health condition or medication, you might need to stay home and isolate longer than 10 days. Talk to your healthcare provider for more information. Your doctor may work with an infectious disease expert at your local health department to determine when you can be around others. How to Manage Common Symptoms Associated with COVID for Adults Fever- Fever is a temperature over 100.4 F and can occur when the body is fighting an infection. To help treat a fever: Drink plenty of fluids and stay well hydrated. Eat small amounts of easy to digest food. Rest. Your body needs rest to recover, but getting up and moving around the house frequently is a good idea. You should try to continue doing your normal daily activities (bathing, toileting, grooming, cooking), though you will probably feel tired, and need to rest often. Avoid any heavy activity or exercise, as this will increase your body temperature. Dress in light clothing and stay covered in a light sheet. Keep the room temperature cool. Take a slightly warm (not cold or cool) bath, or apply damp washcloths to the forehead and wrists. Cough- Cough is a common symptom associated with COVID and can be bothersome. To help treat a cough: Stay well hydrated. Try warm water or tea with lemon and/or honey to help soothe the cough. Use a humidifier to add moisture to the air. Try a product with menthol, like a cough drop or a rub for your chest such as Vicks, which can help reduce cough. Try cough drops. Avoid smoking and other strong odors or perfumes. Try breathing exercises to keep your lungs open and clear. Take a big deep breath through your nose and hold for 5 seconds before slowly releasing. Repeat frequently, while you are awake. Congestion- Runny nose or nasal congestion can occur with COVID. Treatment can help relieve symptoms: Try OTC nasal saline spray, or nasal saline rinse to relieve mucus congestion. Nasal strips can help keep nasal passages open, to increase airflow. Elevating your head with an extra pillow in bed can help reduce congestion. Using a humidifier can increase moisture in the air, and make breathing easier. Sore Throat- Another common symptom with COVID, can be managed at home by: Stay well hydrated. Gargle with salt water - mix teaspoon salt with 1 cup of warm water and gargle. This helps to loosen mucus in the back of the throat and may reduce discomfort. Try ice chips, popsicles or lozenges to soothe the throat. Nausea/Vomiting/Diarrhea- These are common symptoms, and staying hydrated is most important. If you are nauseous or vomiting, start with small sips of water every 10-15 minutes and increase as tolerated. You can try sucking an ice cube too. If tolerating, you can try pedialyte or Gatorade, or flat sprite or magnolia-nery. Start slowly and increase as you are able to. Instead of meals, try smaller, more frequent snacks. Try eating bland foods like crackers, toast, rice, and applesauce. Avoid spicy, greasy or fried foods and dairy containing foods. Even if you aren't feeling hungry due to lack of smell or taste, it is important to try to take in some food when you are able. After drinking and eating, rest in an upright position for up to two hours as needed to help decrease nauseous feelings. Try closing your eyes, avoid moving and watching TV. Avoid strong odors that can make you feel more nauseated. When to seek emergency medical attention Look for emergency warning signs for COVID-19. If having any of these symptoms, seek emergency medical care immediately: Trouble breathing Persistent pain or pressure in the chest New confusion Inability to wake or stay awake Bluish lips or face *This list is not all possible symptoms. Please call your medical provider for any other symptoms that are severe or concerning to you. FACT SHEET FOR PATIENTS, PARENTS, AND CAREGIVERS EMERGENCY USE AUTHORIZATION (EUA) OF NADER FOR CORONAVIRUS DISEASE 2019 (COVID-19) You are being given this Fact Sheet because your healthcare provider believes it is necessary to provide you with PAXLOVID for the treatment of bqce-vr-prxpvflm coronavirus disease (COVID-19) caused by the SARS-CoV-2 virus. This Fact Sheet contains information to help you understand the risks and benefits of taking the PAXLOVID you may receive. This Fact Sheet also contains information about how to take PAXLOVID and how to report side effects or problems with the appearance or packaging of PAXLOVID. The U.S. Food and Drug Administration (FDA) has issued an Emergency Use Authorization (EUA) to make PAXLOVID available for the treatment of agam-tm-nqglqvom COVID-19 in adults and children 12 years of age and older weighing at least 88 pounds (40 kg) who are at high risk for progression to severe COVID-19, including hospitalization or (for more details about an EUA please see What is an Emergency Use Authorization? at the end of this document). Read this Fact Sheet for information about PAXLOVID. Talk to your healthcare provider about your options or if you have any questions. It is your choice to take PAXLOVID. What is COVID-19? COVID-19 is caused by a virus called a coronavirus. You can get COVID-19 through close contact with another person who has the virus. COVID-19 illnesses have ranged from very numb-kx-afboke, including illness resulting in . While information so far suggests that most COVID-19 illness is mild, serious illness can happen and may cause some of your other medical conditions to become worse. Older people and people of all ages with severe, long lasting (chronic) medical conditions like heart disease, lung disease, and diabetes, for example seem to be at higher risk of being hospitalized for COVID-19. What is PAXLOVID? PAXLOVID is a medicine that is available under EUA for the treatment of umes-jb-oifnlpqa COVID-19 in adults and children 12 years of age and older weighing at least 88 pounds (40 kg) who are at high risk for progression to severe COVID-19, including hospitalization or . Although PAXLOVID is FDA-approved for the treatment of COVID-19 in certain adults (see section What other treatment choices are there?), PAXLOVID use in children remains investigational because it is still being studied. There is limited information about the safety and effectiveness of using PAXLOVID to treat children with corb-re-qodfopux COVID-19. What is the most important information I should know about PAXLOVID? PAXLOVID can interact with other medicines causing severe or life-threatening side effects or . It is important to know the medicines that should not be taken with PAXLOVID. Do not take PAXLOVID if: you are taking any of the following medicines: o alfuzosin o amiodarone o apalutamide o carbamazepine o colchicine o dihydroergotamine o dronedarone o eletriptan o eplerenone o ergotamine o finerenone o flecainide o flibanserin o ivabradine o lomitapide o lovastatin o lumacaftor/ivacaftor o lurasidone o methylergonovine o midazolam (oral) o naloxegol o phenobarbital o phenytoin o pimozide o primidone o propafenone o quinidine o ranolazine o rifampin o rifapentine o Kyra s Wort (hypericum perforatum) o sildenafil (Revatio ) for pulmonary arterial hypertension o silodosin o simvastatin o tolvaptan o triazolam o ubrogepant o voclosporin These are not the only medicines that may cause serious or life-threatening side effects if taken with PAXLOVID. PAXLOVID may increase or decrease the levels of multiple other medicines. It is very important to tell your healthcare provider about all of the medicines you are taking because additional laboratory tests or changes in the dose of your other medicines may be necessary during treatment with PAXLOVID. Your healthcare provider may also tell you about specific symptoms to watch out for that may indicate that you need to stop or decrease the dose of some of your other medicines. you are allergic to nirmatrelvir, ritonavir, or any of the ingredients in PAXLOVID. See the end of this leaflet for a complete list of ingredients in PAXLOVID. See What are the important possible side effects of PAXLOVID? for signs and symptoms of allergic reactions. What should I tell my healthcare provider before I take PAXLOVID? Tell your healthcare provider if you: have kidney problems. You may need a different dose of PAXLOVID. have liver problems, including hepatitis. have Human Immunodeficiency Virus 1 (HIV-1) infection. PAXLOVID may lead to some HIV-1 medicines not working as well in the future. are or plan to become . It is not known if PAXLOVID can harm your unborn baby. Tell your healthcare provider right away if you are or if you become . are or plan to breastfeed. It is not known if PAXLOVID can pass into your breast milk. Talk to your healthcare provider about the best way to feed your baby during treatment with PAXLOVID. Some medicines may interact with PAXLOVID and may cause serious side effects. Tell your healthcare provider about all the medicines you take, including prescription and vmxe-vns-hptcetx medicines, vitamins, and herbal supplements. Your healthcare provider can tell you if it is safe to take PAXLOVID with other medicines. You can ask your healthcare provider or pharmacist for a list of medicines that interact with PAXLOVID. Do not start taking a new medicine without telling your healthcare provider. Tell your healthcare provider if you are taking combined control (hormonal contraceptive). PAXLOVID may affect how your hormonal contraceptives work. Females who are able to become should use another effective alternative form of contraception or an additional barrier method of contraception during treatment with PAXLOVID. Talk to your healthcare provider if you have any questions about contraceptive methods that might be right for you. How do I take PAXLOVID? Take PAXLOVID exactly as your healthcare provider tells you to take it. PAXLOVID consists of 2 medicines: nirmatrelvir tablets and ritonavir tablets. The 2 medicines are taken together 2 times each day for 5 days. Nirmatrelvir is an oval, pink tablet. Ritonavir is a white or off-white tablet. PAXLOVID is available in 2 Dose Packs (see Figures A and B below). Your healthcare provider will prescribe the PAXLOVID Dose Pack that is right for you. If you have kidney disease, your healthcare provider may prescribe a lower dose (see Figure B). Talk to your healthcare provider to make sure you receive the correct Dose Pack. Do not remove your PAXLOVID tablets from the blister card before you are ready to take your dose. Take your first dose of PAXLOVID in the morning or evening, depending on when you sisal picker your prescription, or as your healthcare provider tells you to. Swallow the tablets whole. Do not chew, break, or crush the tablets. Take PAXLOVID with or without food. Do not stop taking PAXLOVID without talking to your healthcare provider, even if you feel better. If you miss a dose of PAXLOVID within 8 hours of the time it is usually taken, take it as soon as you remember. If you miss a dose by more than 8 hours, skip the missed dose and take the next dose at your regular time. Do not take 2 doses of PAXLOVID at the same time. If you take too much PAXLOVID, call your healthcare provider or go to the nearest hospital emergency room right away. If you are taking a ritonavir- or cobicistat-containing medicine to treat hepatitis C or HIV-1 infection, you should continue to take your medicine as prescribed by your healthcare provider. Talk to your healthcare provider if you do not feel better or if you feel worse after 5 days. What are the important possible side effects of PAXLOVID? PAXLOVID may cause serious side effects, including: Allergic reactions, including severe allergic reactions (anaphylaxis) have happened during treatment with PAXLOVID. Stop taking PAXLOVID and get medical help right away if you get any of the following symptoms of an allergic reaction: o skin rash, hives, blisters or peeling skin o painful sores or ulcers in the mouth, nose, throat or genital area o swelling of the mouth, lips, tongue or face o trouble swallowing or breathing o throat tightness o hoarseness Liver Problems. Tell your healthcare provider right away if you get any of the following signs and symptoms of liver problems during treatment with PAXLOVID: o loss of appetite o yellowing of your skin and the white of eyes o dark-colored urine o pale colored stools o itchy skin o stomach-area (abdominal) pain The most common side effects of PAXLOVID include: altered sense of taste and diarrhea. Other possible side effects include: headache vomiting abdominal pain nausea high blood pressure feeling generally unwell These are not all the possible side effects of PAXLOVID. For more information, ask your healthcare provider or pharmacist. What other treatment choices are there? PAXLOVID is FDA-approved for the treatment of tqhs-hk-cysgnhjp COVID-19 in certain adults; however, there are not sufficient quantities of the approved presentations (i.e., dose packs) of PAXLOVID at this time. This EUA continues to authorize the emergency use of PAXLOVID for the approved patient population to ensure continued access in order to meet the public health need. VEKLURY (remdesivir) is FDA-approved for the treatment of klli-cs-kwrblkfn COVID-19 in certain adults and children. Talk with your healthcare provider to see if VEKLURY is appropriate for you. For information on the emergency use of other medicines that are authorized by FDA to treat people with COVID-19, please go to https://www.fda.gov/emergency-pre zikcmsjhv-rhw-pgkllnhp/mcm-legal- lgwcezsyrm-pkn-rykhwn-framework/e wfwlygjl-qgb-igwoxeqxymdze. Your healthcare provider may talk with you about clinical trials for which you may be eligible. It is your choice to be treated or not to be treated with PAXLOVID. Should you decide not to receive it or for your child not to receive it, it will not change your standard medical care. What if I am or ? There is limited experience treating women or mothers with PAXLOVID. For a mother and unborn baby, the benefit of taking PAXLOVID may be greater than the risk from the treatment. If you are , discuss your options and specific situation with your healthcare provider. If you are , discuss your options and specific situation with your healthcare provider. How do I report side effects or problems with the appearance or packaging of PAXLOVID? Contact your healthcare provider if you have any side effects that bother you or do not go away. Report side effects or problems with the appearance or packaging of PAXLOVID (see Figures A and B above for examples of PAXLOVID Dose Packs) to FDA MedWatch at www.fda.gov/medwatch or call 6-783-BVI-4395 or you can report side effects to [employer]. at the contact information provided below. How should I store PAXLOVID? Store PAXLOVID tablets at room temperature, between 68?F to 77?F (20?C to 25?C). Keep PAXLOVID and all medicines out of the reach of children. What if I have questions about the expiration date for my PAXLOVID? The FDA has extended the expiration date (shelf-life) for some lots of PAXLOVID. To find the extended expiration date, enter the lot number found on the side of carton or bottom of blister pack at this website: https://www.[employer] / or talk with your healthcare provider. Information on the authorized shelf-life extensions for PAXLOVID may also be found at https://www.fda.gov/emergency-pre utmwngvgw-fmw-opzdzzao/mcm-legal- pyrsjgaeeu-csk-wxintg-framework/e nxwicaiwj-iiluwv-xkfosczxv. How can I learn more about COVID-19? Ask your healthcare provider. Visit https://www.cdc.gov/COVID19. Contact your local or state public health department. What is an Emergency Use Authorization (EUA)? The [place] FDA has made PAXLOVID available under an emergency access mechanism called an Emergency Use Authorization (EUA). The EUA is supported by a Learning Designer of Health and Human Services (HHS) declaration that circumstances exist to justify the emergency use of drugs and biological products during the COVID-19 pandemic. In issuing an EUA, the FDA has determined, among other things, that based on the total amount of scientific evidence available including data from adequate and well-controlled clinical trials, if available, it is reasonable to believe that the product may be effective for diagnosing, treating, or preventing COVID-19, or a serious or life-threatening disease or condition caused by COVID-19; that the known and potential benefits of the product, when used to diagnose, treat, or prevent such disease or condition, outweigh the known and potential risks of such product; and that there are no adequate, approved, and available alternatives. All of these criteria must be met to allow for the product to be available under an EUA. The EUA for PAXLOVID is in effect for the duration of the COVID-19 declaration justifying emergency use of this product, unless the relevant EUA declaration is terminated or the EUA revoked (after which the products may no longer be used under the EUA). What are the ingredients in PAXLOVID? Active ingredient: nirmatrelvir and ritonavir Nirmatrelvir inactive ingredients: colloidal silicon dioxide, croscarmellose sodium, lactose monohydrate, microcrystalline cellulose, and sodium stearyl fumarate. Film-coating contains: hydroxy propyl methylcellulose, iron oxide red, polyethylene glycol, and titanium dioxide. Ritonavir inactive ingredients: anhydrous dibasic calcium phosphate, colloidal silicon dioxide, copovidone, sodium stearyl fumarate, and sorbitan monolaurate. The film coating may contain: colloidal anhydrous silica, colloidal silicon dioxide, hydroxypropyl cellulose, hypromellose, polyethylene glycol, polysorbate 80, talc, and titanium dioxide. Additional Information For general questions, visit the website or call the telephone number provided below. Website: [employer] Telephone number: (1-877-c19-pack) Distributed by [employer] [place] [address] [id number] Revised: 03/2023 documented in this encounter [facility] 07-31-2023 Note HNO ID: [id number] Author: Michi Tovar APRN.AVIONICS SUPERVISOR Service: ? Author Type: Nurse Practitioner Type: Progress Notes Filed: 07/31/2023 9:52 AM Note Text: This note was created using Inforamariter. Subjective Nicki Hooper is a 32 year old female. 32 year old female with PMH asthma and depression presents for illness. Acute onset 3 days ago +sore throat +fever +headache +cough +body aches Denies N/V/D Has used OTC analgesics Denies tobacco usage. The history is provided by the patient. No wood molder was used. URI She complains of cough. There is no chest tightness, difficulty breathing, frequent throat clearing, hemoptysis, hoarse voice, shortness of breath, sputum production or wheezing. This is a new problem. The current episode started in the past 7 days. The problem occurs constantly. The problem has been unchanged. The cough is non-productive. Associated symptoms include appetite change, a fever, headaches, malaise/fatigue, myalgias, nasal congestion, rhinorrhea, sneezing and a sore throat. Pertinent negatives include no chest pain, dyspnea on exertion, ear congestion, ear pain, heartburn, orthopnea, PND, postnasal drip, sweats, trouble swallowing or weight loss. Her symptoms are aggravated by nothing. Her symptoms are alleviated by nothing. She reports no improvement on treatment. There are no known risk factors for lung disease. Her past medical history is significant for asthma. There is no history of bronchiectasis, bronchitis, COPD, emphysema or pneumonia. PAST MEDICAL HISTORY Diagnosis Date Asthma, mild intermittent as a child, rare with URI Pneumonia age 20 after influenza Vitamin D deficiency 04/2014 PAST SURGICAL HISTORY Procedure Laterality Date NONE ALLERGIES Cats MEDICATIONS FLUoxetine (PROZAC) 40 mg capsule Take 1 capsule by mouth once daily. albuterol HFA (VENTOLIN HFA) 90 mcg/actuation inhaler Inhale 2 Puffs as instructed every 4 hours as needed for wheezing/shortness of breath. FAMILY HISTORY Problem Relation Age of Onset Hypertension Father Thyroid Mother Diabetes Maternal Grandmother HTN Breast Cancer Maternal Aunt 50 No Ocular Disease No Family History Social History Tobacco Use Smoking status: Never Smokeless tobacco: Never Vaping Use Vaping Use: Never used Substance Use Topics Alcohol use: No Drug use: No Review of Systems Constitutional: Positive for appetite change, chills, fatigue, fever and malaise/fatigue. Negative for weight loss. HENT: Positive for rhinorrhea, sneezing and sore throat. Negative for ear pain, hoarse voice, postnasal drip and trouble swallowing. Eyes: Negative for pain, discharge, redness and itching. Respiratory: Positive for cough. Negative for hemoptysis, sputum production, shortness of breath and wheezing. Cardiovascular: Negative for chest pain, dyspnea on exertion, palpitations, leg swelling and PND. Gastrointestinal: Negative for abdominal pain, diarrhea, heartburn, nausea and vomiting. Musculoskeletal: Positive for myalgias. Negative for arthralgias and back pain. Skin: Negative for color change, pallor, rash and wound. Allergic/Immunologic: Positive for environmental allergies. Negative for food allergies and immunocompromised state. Neurological: Positive for headaches. Negative for dizziness and facial asymmetry. Hematological: Negative for adenopathy. Does not bruise/bleed easily. Psychiatric/Behavioral: Negative for agitation and behavioral problems. Objective BP 122/82 Pulse 107 Temp 37.6 ?C (99.7 ?F) Resp 20 Wt 67.9 kg (149 lb 12.8 oz) LMP 07/09/2023 (Exact Date) SpO2 97% BMI 26.21 kg/m? Physical Exam Vitals and nursing note reviewed. Constitutional: General: She is not in acute distress. Appearance: Normal appearance. She is normal weight. She is not ill-appearing, toxic-appearing or diaphoretic. HENT: Head: Normocephalic and atraumatic. Right Ear: Ear canal and external ear normal. Left Ear: Ear canal and external ear normal. Nose: Nose normal. No congestion or rhinorrhea. Mouth/Throat: Mouth: Mucous membranes are moist. Pharynx: Posterior oropharyngeal erythema present. No oropharyngeal exudate. Eyes: General: Right eye: No discharge. Left eye: No discharge. Extraocular Movements: Extraocular movements intact. Conjunctiva/sclera: Conjunctivae normal. Pupils: Pupils are equal, round, and reactive to light. Cardiovascular: Rate and Rhythm: Normal rate and regular rhythm. Pulses: Normal pulses. Heart sounds: Normal heart sounds. No murmur heard. No friction rub. Pulmonary: Effort: Pulmonary effort is normal. No respiratory distress. Breath sounds: Normal breath sounds. No stridor. No wheezing, rhonchi or rales. Chest: Chest wall: No tenderness. Abdominal: General: Abdomen is flat. There is no distension. Palpations: Abdomen is soft. There is no mass. Tenderness: There is no (more content not included)... [facility] 06-14-2023 Note HNO ID: [id number] Author: Kianna Patino OD Service: ? Author Type: COUNTER ATTENDANT Type: Progress Notes Filed: 06/14/2023 1:28 PM Note Text: 1. Myopia, bilateral Good vision, fit, and comfort in new contact lenses. Finalized and printed new spec and clrx. Educated pt on proper wear and care of contact lenses. Good ocular health Return to clinic in one year for contact lens evaluation or sooner with any problems. Kianna Patino, OD June 14, 2023 1:24 PM [facility] 06-14-2023 History of Present illness Narrative 1. Myopia, bilateral Good vision, fit, and comfort in new contact lenses. Finalized and printed new spec and clrx. Educated pt on proper wear and care of contact lenses. Good ocular health Return to clinic in one year for contact lens evaluation or sooner with any problems. Kianna Patino OD June 14, 2023 1:24 PM documented in this encounter [facility] 04-13-2023 Note HNO ID: [id number] Author: RT Eufemia(R) Service: ? Author Type: Branch Operations Manager Type: Progress Notes Filed: 04/13/2023 11:15 AM Note Text: Radiology Service Progress Note PATIENT NAME: Nicki Hooper DATE OF SERVICE: April 13, 2023 TIME: 11:07 AM PATIENT IDENTITY VERIFICATION COMPLETED USING TWO (2) IDENTIFIERS: Name and Date of confirmed by patient verbally. FALL SCREENING: Has the patient had 2 falls in the last year or 1 fall with injury or currently using an Ambulatory Assistive Device (Walker, Cane, Wheelchair, Crutches, etc.)? No PATIENT GENDER DATA: Female. status: : No status: NO. PATIENT RELEVANT IMPLANT DATA REVIEWED: Yes RADIOLOGY DEPARTMENT: General X-ray: Exam(s) Completed: Chest X-Ray PERIPHERAL IV DATA: Not applicable SIGNED BY: RT Eufemia(R) April 13, 2023 11:07 AM [facility] 04-13-2023 Note HNO ID: [id number] Author: Michi Tovar APRN.AVIONICS SUPERVISOR Service: ? Author Type: Nurse Practitioner Type: Progress Notes Filed: 04/13/2023 11:36 AM Note Text: This note was created using NoteWriter. Subjective Nicki Hooper is a 32 year old female. 32 year old female with PMH ashtma presents for illness. Acute onset 2 days ago per patient, but then endorses her cough has been increasingly worse. Cough Dry Worse at night. States itchy throat +headache +ear fullness and congestion Denies fever or chills. Denies SOB or dyspnea. Denies abdominal pain. Denies N/V/D Used Claritin, Advil. Denies tobacco usage. The history is provided by the patient. No wood molder was used. Cough This is a recurrent problem. The current episode started more than 1 week ago. The problem occurs constantly. The problem has not changed since onset.The cough is Non-productive. There has been no fever. Associated symptoms include ear congestion, ear pain and headaches. Pertinent negatives include no chest pain, no chills, no sweats, no weight loss, no rhinorrhea, no sore throat, no myalgias, no shortness of breath, no wheezing and no eye redness. Treatments tried: Claritin and Advil. The treatment provided no relief. She is not a smoker. Her past medical history is significant for asthma. Her past medical history does not include bronchitis, pneumonia, bronchiectasis, COPD or emphysema. PAST MEDICAL HISTORY Diagnosis Date - Asthma, mild intermittent as a child, rare with URI - Pneumonia age 20 after influenza - Vitamin D deficiency 04/2014 PAST SURGICAL HISTORY Procedure Laterality Date - NONE ALLERGIES Cats MEDICATIONS - FLUoxetine (PROZAC) 40 mg capsule Take 1 capsule by mouth once daily. - albuterol HFA (VENTOLIN HFA) 90 mcg/actuation inhaler Inhale 2 Puffs as instructed every 4 hours as needed for wheezing/shortness of breath. - predniSONE (DELTASONE) 10 mg tablet Take 6 tabs for 3 days, then 4 tabs for 3 days, then 2 tabs for 3 days then 1 tab for 3 days with food. - fluticasone (FLONASE) 50 mcg/actuation nasal spray Use 2 Sprays in each nostril once daily. Rinse mouth after use. - amoxicillin (AMOXIL) 875 mg tablet Take 1 tablet by mouth twice daily for 7 days. FAMILY HISTORY Problem Relation Age of Onset - Thyroid Mother - Hypertension Father - Diabetes Maternal Grandmother HTN - Breast Cancer Maternal Aunt 50 Social History Tobacco Use - Smoking status: Never - Smokeless tobacco: Never Vaping Use - Vaping Use: Never used Substance Use Topics - Alcohol use: No - Drug use: No Review of Systems Constitutional: Negative for chills, fatigue, fever and weight loss. HENT: Positive for congestion and ear pain. Negative for rhinorrhea, sinus pressure, sinus pain and sore throat. Eyes: Negative for pain, discharge, redness and itching. Respiratory: Positive for cough. Negative for shortness of breath and wheezing. Cardiovascular: Negative for chest pain. Gastrointestinal: Negative for abdominal pain, diarrhea, nausea and vomiting. Musculoskeletal: Negative for arthralgias, back pain and myalgias. Skin: Negative for color change, pallor and rash. Allergic/Immunologic: Positive for environmental allergies. Negative for food allergies and immunocompromised state. Neurological: Positive for headaches. Negative for dizziness and facial asymmetry. Hematological: Negative for adenopathy. Does not bruise/bleed easily. Psychiatric/Behavioral: Negative for agitation and behavioral problems. Objective BP 118/72 Pulse 89 Temp 36.8 ?C (98.3 ?F) Resp 18 Wt 68 kg (150 lb) LMP 10/25/2022 (Exact Date) SpO2 97% BMI 26.25 kg/m? Physical Exam Vitals and nursing note reviewed. Constitutional: General: She is not in acute distress. Appearance: Normal appearance. She is normal weight. She is not ill-appearing, toxic-appearing or diaphoretic. HENT: Head: Normocephalic and atraumatic. Right Ear: Ear canal and external ear normal. Left Ear: Ear canal and external ear normal. Ears: Comments: Left TM erythematous and bulging. Nose: Nose normal. No congestion or rhinorrhea. Mouth/Throat: Mouth: Mucous membranes are moist. Pharynx: No oropharyngeal exudate or posterior oropharyngeal erythema. Eyes: General: Right eye: No discharge. Left eye: No discharge. Extraocular Movements: Extraocular movements intact. Conjunctiva/sclera: Conjunctivae normal. Pupils: Pupils are equal, round, and reactive to light. Cardiovascular: Rate and Rhythm: Normal rate and regular rhythm. Pulses: Normal pulses. Heart sounds: Normal heart sounds. No murmur heard. No friction rub. Pulmonary: Effort: Pulmonary effort is normal. No respiratory distress. Breath sounds: Normal breath sounds. No stridor. No wheezing, rhonchi or rales. Comments: +cough with deep inspiration Chest: Chest wall: No tenderness. Abdominal: General: Abd (more content not included)... [facility] 04-13-2023 History of Present illness Narrative This note was created using Inforamariter. Subjective Nicki Hooper is a 32 year old female. 32 year old female with PMH ashtma presents for illness. Acute onset 2 days ago per patient, but then endorses her cough has been increasingly worse. Cough Dry Worse at night. States itchy throat +headache +ear fullness and congestion Denies fever or chills. Denies SOB or dyspnea. Denies abdominal pain. Denies N/V/D Used Claritin, Advil. Denies tobacco usage. The history is provided by the patient. No wood molder was used. Cough This is a recurrent problem. The current episode started more than 1 week ago. The problem occurs constantly. The problem has not changed since onset.The cough is Non-productive. There has been no fever. Associated symptoms include ear congestion, ear pain and headaches. Pertinent negatives include no chest pain, no chills, no sweats, no weight loss, no rhinorrhea, no sore throat, no myalgias, no shortness of breath, no wheezing and no eye redness. Treatments tried: Claritin and Advil. The treatment provided no relief. She is not a smoker. Her past medical history is significant for asthma. Her past medical history does not include bronchitis, pneumonia, bronchiectasis, COPD or emphysema. PAST MEDICAL HISTORY Diagnosis Date Asthma, mild intermittent as a child, rare with URI Pneumonia age 20 after influenza Vitamin D deficiency 04/2014 PAST SURGICAL HISTORY Procedure Laterality Date NONE ALLERGIES Cats MEDICATIONS FLUoxetine (PROZAC) 40 mg capsule Take 1 capsule by mouth once daily. albuterol HFA (VENTOLIN HFA) 90 mcg/actuation inhaler Inhale 2 Puffs as instructed every 4 hours as needed for wheezing/shortness of breath. predniSONE (DELTASONE) 10 mg tablet Take 6 tabs for 3 days, then 4 tabs for 3 days, then 2 tabs for 3 days then 1 tab for 3 days with food. fluticasone (FLONASE) 50 mcg/actuation nasal spray Use 2 Sprays in each nostril once daily. Rinse mouth after use. amoxicillin (AMOXIL) 875 mg tablet Take 1 tablet by mouth twice daily for 7 days. FAMILY HISTORY Problem Relation Age of Onset Thyroid Mother Hypertension Father Diabetes Maternal Grandmother HTN Breast Cancer Maternal Aunt 50 Social History Tobacco Use Smoking status: Never Smokeless tobacco: Never Vaping Use Vaping Use: Never used Substance Use Topics Alcohol use: No Drug use: No Review of Systems Constitutional: Negative for chills, fatigue, fever and weight loss. HENT: Positive for congestion and ear pain. Negative for rhinorrhea, sinus pressure, sinus pain and sore throat. Eyes: Negative for pain, discharge, redness and itching. Respiratory: Positive for cough. Negative for shortness of breath and wheezing. Cardiovascular: Negative for chest pain. Gastrointestinal: Negative for abdominal pain, diarrhea, nausea and vomiting. Musculoskeletal: Negative for arthralgias, back pain and myalgias. Skin: Negative for color change, pallor and rash. Allergic/Immunologic: Positive for environmental allergies. Negative for food allergies and immunocompromised state. Neurological: Positive for headaches. Negative for dizziness and facial asymmetry. Hematological: Negative for adenopathy. Does not bruise/bleed easily. Psychiatric/Behavioral: Negative for agitation and behavioral problems. Objective BP 118/72 Pulse 89 Temp 36.8 C (98.3 F) Resp 18 Wt 68 kg (150 lb) LMP 10/25/2022 (Exact Date) SpO2 97% BMI 26.25 kg/m Physical Exam Vitals and nursing note reviewed. Constitutional: General: She is not in acute distress. Appearance: Normal appearance. She is normal weight. She is not ill-appearing, toxic-appearing or diaphoretic. HENT: Head: Normocephalic and atraumatic. Right Ear: Ear canal and external ear normal. Left Ear: Ear canal and external ear normal. Ears: Comments: Left TM erythematous and bulging. Nose: Nose normal. No congestion or rhinorrhea. Mouth/Throat: Mouth: Mucous membranes are moist. Pharynx: No oropharyngeal exudate or posterior oropharyngeal erythema. Eyes: General: Right eye: No discharge. Left eye: No discharge. Extraocular Movements: Extraocular movements intact. Conjunctiva/sclera: Conjunctivae normal. Pupils: Pupils are equal, round, and reactive to light. Cardiovascular: Rate and Rhythm: Normal rate and regular rhythm. Pulses: Normal pulses. Heart sounds: Normal heart sounds. No murmur heard. No friction rub. Pulmonary: Effort: Pulmonary effort is normal. No respiratory distress. Breath sounds: Normal breath sounds. No stridor. No wheezing, rhonchi or rales. Comments: +cough with deep inspiration Chest: Chest wall: No tenderness. Abdominal: General: Abdomen is flat. There is no distension. Palpations: Abdomen is soft. There is no mass. Tenderness: There is no abdominal tenderness. There is no right CVA tenderness, left CVA tenderness, guarding or rebound. Hernia: No hernia is present. Musculoskeletal: General: No swelling, tenderness, deformity or signs of injury. Normal range of motion. Cervical back: Normal range of motion and neck supple. No rigidity. Right lower leg: No edema. Left lower leg: No edema. Lymphadenopathy: Cervical: No cervical adenopathy. Skin: General: Skin is warm and dry. Capillary Refill: Capillary refill takes less than 2 seconds. Coloration: Skin is not jaundiced or pale. Findings: No bruising, erythema, lesion or rash. Neurological: General: No focal deficit present. Mental Status: She is alert and oriented to person, place, and time. Cranial Nerves: No cranial nerve deficit. Sensory: No sensory deficit. Motor: No weakness. Coordination: Coordination normal. Gait: Gait normal. Psychiatric: Mood and Affect: Mood normal. Behavior: Behavior normal. Thought Content: Thought content normal. Judgment: Judgment normal. Assessment and Plan ASSESSMENT/PLAN: 1. Upper respiratory tract infection, unspecified type - ICD9: 465.9, ICD10: J06.9 (primary diagnosis) - Symptomatic treatment with prn analgesia - Supportive care with fluids and rest - The patient may also use OTC cough and cold meds as needed and nasal saline gtts and suction prn. - Follow up in 3-5 days if symptoms persist or sooner if worsening of symptoms - Chest xray negative for acute process - PREDNISONE 10 MG TABLET - FLUTICASONE PROPIONATE 50 MCG/ACTUATION NASAL SPRAY,SUSPENSION - AMOXICILLIN 875 MG TABLET - XR CHEST 2V FRONTAL/LAT 2. Acute otitis media, left - ICD9: 382.9, ICD10: H66.92 - Will begin treatment with as per antibiotic as written, see orders - The patient should also be given OTC cough and cold meds as needed, warm salt water gargles, throat lozenges and/or OTC throat spray as needed, and nasal saline gtts and suction prn for the first 5-7 days of treatment. - Supportive care with plenty of fluids, rest, and analgesia prn. - Follow up in 3-5 days if symptoms persist or worsen. Michi Tovar APRN.GERA documented in this encounter [facility] 01-17-2023 Miscellaneous Notes Pt called back and results were given. Vanessa Akhtar LPN documented in this encounter [facility] 01-01-2023 Miscellaneous Notes Pt notified of results via [employer]. Brittany Romo Ma Message left to return call. Left message to return call. Please inform patient that her recent lab results show low normal iron levels. Would like her increasing her iron rich foods and starting on daily iron supplement such as Slo Fe 45-67 mg once a day with food. Also her TSH is slightly elevated but her free t4 and free t3 thyroid labs are normal. Would recommend rechecking this and iron labs in 2-3 months These labs are ordered for her to have rechecked Kevan Montano DO documented in this encounter [facility] 12-08-2022 Note HNO ID: [id number] Author: Kevan Montano DO Service: ? Author Type: Physician Type: Progress Notes Filed: 12/11/2022 7:52 AM Note Text: CC: Nicki Hooper is a 31 year old female who presents to the office for physical HPI: Fatigue symptoms, headaches- seem to be worse when using the computer a lot and straining her eyes. No fevers or chills. No neck pain, does admit she is using a computer or phone or tablet a lot when symptoms are occurring. Mood, admits that she has had some lack of motivation, feeling down at times. 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 Still finds kimberly in her family and activities with them. She denies any SI or HI. Taking Prozac 20 mg a day. Vitamin D deficiency, not currently taking a supplement. Bilateral knee pain, states that she thinks her right leg is shorter than her left leg. Hasn't had recent xrays, hasn't seen podiatry or have any lifts in her shoes. Worse after sitting and getting up to stand and walk. Worse with prolonged walking as well. PAST MEDICAL HISTORY Diagnosis Date Asthma, mild intermittent as a child, rare with URI Pneumonia age 20 after influenza Vitamin D deficiency 04/2014 PAST SURGICAL HISTORY Procedure Laterality Date NONE Social History: Social History Tobacco Use Smoking status: Never Smokeless tobacco: Never Vaping Use Vaping Use: Never used Substance Use Topics Alcohol use: No Drug use: No FAMILY HISTORY Problem Relation Age of Onset Thyroid Mother Hypertension Father Diabetes Maternal Grandmother HTN Breast Cancer Maternal Aunt 50 Current Outpatient prescriptions: albuterol HFA (VENTOLIN HFA) 90 mcg/actuation inhaler Inhale 2 Puffs as instructed every 4 hours as needed for wheezing/shortness of breath. FLUoxetine (PROZAC) 40 mg capsule Take 1 capsule by mouth once daily. Allergies: ALLERGIES Allergen Reactions Cats Rash ROS: See hPI PE: 12/08/22 1418 BP: 116/70 Pulse: 80 Resp: 16 Temp: 37.1 ?C (98.7 ?F) TempSrc: Right Tympanic Weight: 66.2 kg (146 lb) Height: 161 cm (5' 3.39 ) Gen: AANDO, NAD, non-toxic appearing, Pleasant, cooperative HEENT: NT/AC, wearing glasses, PERRLA, EOMs intact b/l, nares clear and patent b/l, pharynx without erythema, exudate or lesions.MMM, Uvula midline. EACs without erythema or debris. TMs pearly medley with intact landmarks b/l. Neck: supple, No cervical LAD, no thyromegaly, no carotid bruits CV: RRR, normal S1 and S2, no murmurs, no gallops, no rubs, Pulses 2+ and symmetric in UE and LE b/l Lungs: normal respiratory effort, CTA b/l, no wheezing or rhonchi or rales Abd: soft, NT, ND, +BS, no hepatosplenomegaly MS: FROM all 4 extremities Mild discomfort b/l medial knee joints, laxity is present of patella and mild patellar apprehension, otherwise normal knee and hip exam Neuro: CN II-XII intact b/l, strength 5/5 b/l UE and LE, DTRs 2/4 UE and LE, sensation intact. Skin: warm, dry, intact, No rashes or lesions on exposed skin. No edema, normal pulses ASSESSMENT/PLAN: 1. Well adult exam - ICD9: V70.0, ICD10: Z00.00 (primary diagnosis) - Counseled on healthy diet and regular exercise - Calcium intake with supplements or by diet of 1000 mg/day for under 50, 9149-3357 mg/day for 50+ - Follow up for annual exam in one year - needs to set up appt for PAP/pelvic exam - LIPID PANEL BASIC - COMP METABOLIC PANEL - CBC + DIFF - TSH BLD - T4 FREE/FREE THYROX - T3 FREE BLD - VITAMIN D 25 HYDROXY - VITAMIN B12 BLOOD - IRON + TIBC - FERRITIN BLD 2. Anxiety and depression - ICD9: 300.00, 311, ICD10: F41.9, F32.A Increase dose of prozac to 40 mg a day and check labs as ordered, no SI or HI concerns. If mood isn't improving, okay to change to alternative SSRI or Add on wellbutrin or change to wellbutrin as d/w her today. Consider therapy as well. - FLUOXETINE 40 MG CAPSULE - TSH BLD - T4 FREE/FREE THYROX - T3 FREE BLD 3. Vitamin D deficiency - ICD9: 268.9, ICD10: E55.9 - VITAMIN D 25 HYDROXY 4. Leg length discrepancy - ICD9: 736.81, ICD10: M21.70 Xrays and referral to Orthopedics and PHYSICAL THERAPY if symptoms are worsening, unsure if this is present - XR LEG FRONTAL SCANOGRAM LENGTHS - CONSULT TO PHYSICAL THERAPY 5. Headache disorder - ICD9: 784.0, ICD10: R51.9 Start on supplements. Check labs, likely related to too much screen time, d/w her to check up with her oxygen tank filler for good exam as well. - MAGNESIUM BLD 6. Fatigue, unspecified type - ICD9: 780.79, ICD10: R53.83 Recheck labs as ordered Kevan Montano DO To ER if develops chest pain, shortness of breath, or severe worsening of symptoms. Discussed risks, benefits, alternatives, and potential side effects of medications. Patient expressed understanding and agreed with the plan. Yany Paiz (more content not included)... [facility] 12-08-2022 History of Present illness Narrative CC: Nicki Hooper is a 31 year old female who presents to the office for physical HPI: Fatigue symptoms, headaches- seem to be worse when using the computer a lot and straining her eyes. No fevers or chills. No neck pain, does admit she is using a computer or phone or tablet a lot when symptoms are occurring. Mood, admits that she has had some lack of motivation, feeling down at times. 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 Still finds kimberly in her family and activities with them. She denies any SI or HI. Taking Prozac 20 mg a day. Vitamin D deficiency, not currently taking a supplement. Bilateral knee pain, states that she thinks her right leg is shorter than her left leg. Hasn't had recent xrays, hasn't seen podiatry or have any lifts in her shoes. Worse after sitting and getting up to stand and walk. Worse with prolonged walking as well. PAST MEDICAL HISTORY Diagnosis Date Asthma, mild intermittent as a child, rare with URI Pneumonia age 20 after influenza Vitamin D deficiency 04/2014 PAST SURGICAL HISTORY Procedure Laterality Date NONE Social History: Social History Tobacco Use Smoking status: Never Smokeless tobacco: Never Vaping Use Vaping Use: Never used Substance Use Topics Alcohol use: No Drug use: No FAMILY HISTORY Problem Relation Age of Onset Thyroid Mother Hypertension Father Diabetes Maternal Grandmother HTN Breast Cancer Maternal Aunt 50 Current Outpatient prescriptions: albuterol HFA (VENTOLIN HFA) 90 mcg/actuation inhaler Inhale 2 Puffs as instructed every 4 hours as needed for wheezing/shortness of breath. FLUoxetine (PROZAC) 40 mg capsule Take 1 capsule by mouth once daily. Allergies: ALLERGIES Allergen Reactions Cats Rash ROS: See hPI PE: 12/08/22 1418 BP: 116/70 Pulse: 80 Resp: 16 Temp: 37.1 C (98.7 F) TempSrc: Right Tympanic Weight: 66.2 kg (146 lb) Height: 161 cm (5' 3.39 ) Gen: A&O, NAD, non-toxic appearing, Pleasant, cooperative HEENT: NT/AC, wearing glasses, PERRLA, EOMs intact b/l, nares clear and patent b/l, pharynx without erythema, exudate or lesions.MMM, Uvula midline. EACs without erythema or debris. TMs pearly medley with intact landmarks b/l. Neck: supple, No cervical LAD, no thyromegaly, no carotid bruits CV: RRR, normal S1 and S2, no murmurs, no gallops, no rubs, Pulses 2+ and symmetric in UE and LE b/l Lungs: normal respiratory effort, CTA b/l, no wheezing or rhonchi or rales Abd: soft, NT, ND, +BS, no hepatosplenomegaly MS: FROM all 4 extremities Mild discomfort b/l medial knee joints, laxity is present of patella and mild patellar apprehension, otherwise normal knee and hip exam Neuro: CN II-XII intact b/l, strength 5/5 b/l UE and LE, DTRs 2/4 UE and LE, sensation intact. Skin: warm, dry, intact, No rashes or lesions on exposed skin. No edema, normal pulses ASSESSMENT/PLAN: 1. Well adult exam - ICD9: V70.0, ICD10: Z00.00 (primary diagnosis) - Counseled on healthy diet and regular exercise - Calcium intake with supplements or by diet of 1000 mg/day for under 50, 4780-0266 mg/day for 50+ - Follow up for annual exam in one year - needs to set up appt for PAP/pelvic exam - LIPID PANEL BASIC - COMP METABOLIC PANEL - CBC + DIFF - TSH BLD - T4 FREE/FREE THYROX - T3 FREE BLD - VITAMIN D 25 HYDROXY - VITAMIN B12 BLOOD - IRON + TIBC - FERRITIN BLD 2. Anxiety and depression - ICD9: 300.00, 311, ICD10: F41.9, F32.A Increase dose of prozac to 40 mg a day and check labs as ordered, no SI or HI concerns. If mood isn't improving, okay to change to alternative SSRI or Add on wellbutrin or change to wellbutrin as d/w her today. Consider therapy as well. - FLUOXETINE 40 MG CAPSULE - TSH BLD - T4 FREE/FREE THYROX - T3 FREE BLD 3. Vitamin D deficiency - ICD9: 268.9, ICD10: E55.9 - VITAMIN D 25 HYDROXY 4. Leg length discrepancy - ICD9: 736.81, ICD10: M21.70 Xrays and referral to Orthopedics and PHYSICAL THERAPY if symptoms are worsening, unsure if this is present - XR LEG FRONTAL SCANOGRAM LENGTHS - CONSULT TO PHYSICAL THERAPY 5. Headache disorder - ICD9: 784.0, ICD10: R51.9 Start on supplements. Check labs, likely related to too much screen time, d/w her to check up with her oxygen tank filler for good exam as well. - MAGNESIUM BLD 6. Fatigue, unspecified type - ICD9: 780.79, ICD10: R53.83 Recheck labs as ordered Kevan Montano DO To ER if develops chest pain, shortness of breath, or severe worsening of symptoms. Discussed risks, benefits, alternatives, and potential side effects of medications. Patient expressed understanding and agreed with the plan. Kevan Montano DO [address] [place] [address] documented in this encounter [facility] 10-23-2022 Note HNO ID: [id number] Author: Tejal Villagran APRN.AVIONICS SUPERVISOR Service: ? Author Type: Nurse Practitioner Type: Progress Notes Filed: 10/23/2022 3:15 PM Note Text: Chief Complaint Patient presents with: Medication Follow-up HPI Nicki Hooper is a 31 year old female who presents here today for Above Complaints. Today: Follow up from 3 months ago from restarting Prozac. Continuing with anxiety. Has recently started a new job that is causing some added anxiety. Is biting around her nails, the insides of her mouth. Not much of an appetite/doesn't feel like cooking. Does eat out quite a bit. Wants to stay in bed all the time. No SI/HI. Lives with her parents and they are very involved, aware of her anxiety and depression. Not sure that the Prozac is helping. Past medical history, appointments, medications, allergies reviewed. Previous Medical History PAST MEDICAL HISTORY Diagnosis Date Asthma, mild intermittent as a child, rare with URI Pneumonia age 20 after influenza Vitamin D deficiency 04/2014 Previous Surgical History PAST SURGICAL HISTORY Procedure Laterality Date NONE Family History FAMILY HISTORY Problem Relation Age of Onset Thyroid Mother Hypertension Father Diabetes Maternal Grandmother HTN Breast Cancer Maternal Aunt 50 Patient Allergies ALLERGIES Allergen Reactions Cats Rash Current Medications Current Outpatient Medications on File Prior to Visit Medication Sig FLUoxetine (PROZAC) 10 mg capsule TAKE 1 CAPSULE BY MOUTH ONCE DAILY albuterol HFA (VENTOLIN HFA) 90 mcg/actuation inhaler Inhale 2 Puffs as instructed every 4 hours as needed for wheezing/shortness of breath. No current facility-administered medications on file prior to visit. Social History Social History Tobacco Use Smoking status: Never Smokeless tobacco: Never Vaping Use Vaping Use: Never used Substance Use Topics Alcohol use: No Drug use: No Review of Symptoms REVIEW OF SYSTEMS See HPI, otherwise negative EXAM: BP 112/82 (BP Site: Left Arm, BP Position: Sitting, BP Cuff Size: Regular Adult) Pulse 87 Resp 16 Wt 65.5 kg (144 lb 6.4 oz) LMP 11/25/2021 (Approximate) SpO2 95% BMI 25.99 kg/m? General Appearance: Well appearing, alert, in no acute distress, well-hydrated, well nourished.. Lungs: Lungs clear to auscultation. No wheezing, rhonchi, rales.. Heart: RRR without murmur, gallop, or rubs. No ectopy. Psychiatric: pleasant, cooperative, no SI/HI. Health Maintenance List HEPATITIS B(1 of 3 - 3-dose series) Never done HEPATITIS C SCREENING Never done HIV SCREENING Never done PAP TESTING Never done DTAP,TDAP,TD(3 - Td or Tdap) due on 03/27/2032 INFLUENZA Completed COVID-19 VACCINE Completed Data reviewed Previous records, office notes ASSESSMENT/PLAN: 1. Anxiety and depression - ICD9: 300.00, 311, ICD10: F41.9, F32.A Increase fluoxetine from 10 to 20mg daily. Follow up in 1 month, sooner if necessary. - FLUOXETINE 20 MG CAPSULE Tejal Villagran APRN.GERA [facility] 10-23-2022 History of Present illness Narrative Chief Complaint Patient presents with: Medication Follow-up HPI Nicki Hooper is a 31 year old female who presents here today for Above Complaints. Today: Follow up from 3 months ago from restarting Prozac. Continuing with anxiety. Has recently started a new job that is causing some added anxiety. Is biting around her nails, the insides of her mouth. Not much of an appetite/doesn't feel like cooking. Does eat out quite a bit. Wants to stay in bed all the time. No SI/HI. Lives with her parents and they are very involved, aware of her anxiety and depression. Not sure that the Prozac is helping. Past medical history, appointments, medications, allergies reviewed. Previous Medical History PAST MEDICAL HISTORY Diagnosis Date Asthma, mild intermittent as a child, rare with URI Pneumonia age 20 after influenza Vitamin D deficiency 04/2014 Previous Surgical History PAST SURGICAL HISTORY Procedure Laterality Date NONE Family History FAMILY HISTORY Problem Relation Age of Onset Thyroid Mother Hypertension Father Diabetes Maternal Grandmother HTN Breast Cancer Maternal Aunt 50 Patient Allergies ALLERGIES Allergen Reactions Cats Rash Current Medications Current Outpatient Medications on File Prior to Visit Medication Sig FLUoxetine (PROZAC) 10 mg capsule TAKE 1 CAPSULE BY MOUTH ONCE DAILY albuterol HFA (VENTOLIN HFA) 90 mcg/actuation inhaler Inhale 2 Puffs as instructed every 4 hours as needed for wheezing/shortness of breath. No current facility-administered medications on file prior to visit. Social History Social History Tobacco Use Smoking status: Never Smokeless tobacco: Never Vaping Use Vaping Use: Never used Substance Use Topics Alcohol use: No Drug use: No Review of Symptoms REVIEW OF SYSTEMS See HPI, otherwise negative EXAM: BP 112/82 (BP Site: Left Arm, BP Position: Sitting, BP Cuff Size: Regular Adult) Pulse 87 Resp 16 Wt 65.5 kg (144 lb 6.4 oz) LMP 11/25/2021 (Approximate) SpO2 95% BMI 25.99 kg/m General Appearance: Well appearing, alert, in no acute distress, well-hydrated, well nourished.. Lungs: Lungs clear to auscultation. No wheezing, rhonchi, rales.. Heart: RRR without murmur, gallop, or rubs. No ectopy. Psychiatric: pleasant, cooperative, no SI/HI. Health Maintenance List HEPATITIS B(1 of 3 - 3-dose series) Never done HEPATITIS C SCREENING Never done HIV SCREENING Never done PAP TESTING Never done DTAP,TDAP,TD(3 - Td or Tdap) due on 03/27/2032 INFLUENZA Completed COVID-19 VACCINE Completed Data reviewed Previous records, office notes ASSESSMENT/PLAN: 1. Anxiety and depression - ICD9: 300.00, 311, ICD10: F41.9, F32.A Increase fluoxetine from 10 to 20mg daily. Follow up in 1 month, sooner if necessary. - FLUOXETINE 20 MG CAPSULE Tejal Villagran APRN.AVIONICS SUPERVISOR documented in this encounter [facility] 10-04-2022 Miscellaneous Notes Last office visit: 08/10/22 F/u scheduled: none Brittany Romo Ma documented in this encounter [facility] 08-10-2022 History of Present illness Narrative Chief Complaint Patient presents with: Depression HPI Nicki Hooper is a 31 year old female who presents here today for Above Complaints. Today: Stopped taking her Lexapro about a month ago. Has a chronic history of depression and would like to get started back on a medication for this again. Feels like not wanting to leave her house. No other concerns or changes, triggers. Denies SI/HI Would like her flu shot today. Past medical history, appointments, medications, allergies reviewed. Previous Medical History PAST MEDICAL HISTORY Diagnosis Date Asthma, mild intermittent as a child, rare with URI Pneumonia age 20 after influenza Vitamin D deficiency 04/2014 Previous Surgical History PAST SURGICAL HISTORY Procedure Laterality Date NONE Family History FAMILY HISTORY Problem Relation Age of Onset Thyroid Mother Hypertension Father Diabetes Maternal Grandmother HTN Breast Cancer Maternal Aunt 50 Patient Allergies ALLERGIES Allergen Reactions Cats Rash Current Medications Current Outpatient Medications on File Prior to Visit Medication Sig albuterol HFA (VENTOLIN HFA) 90 mcg/actuation inhaler Inhale 2 Puffs as instructed every 4 hours as needed for Wheezing/Shortness of Breath. escitalopram oxalate (LEXAPRO) 10 mg tablet TAKE 1 TABLET BY MOUTH EVERY DAY meloxicam (MOBIC) 15 mg tablet TAKE 1 TABLET BY MOUTH ONCE DAILY WITH FOOD (Patient not taking: Reported on 10/20/2021 ) No current facility-administered medications on file prior to visit. Social History Social History Tobacco Use Smoking status: Never Smokeless tobacco: Never Vaping Use Vaping Use: Never used Substance Use Topics Alcohol use: No Drug use: No Review of Symptoms REVIEW OF SYSTEMS See HPI, otherwise negative EXAM: BP 102/76 (BP Site: Left Arm, BP Position: Sitting, BP Cuff Size: Regular Adult) Pulse 102 Resp 18 Wt 65 kg (143 lb 3.2 oz) LMP 11/25/2021 (Approximate) SpO2 98% BMI 25.77 kg/m General Appearance: Well appearing, alert, in no acute distress, well-hydrated, well nourished.. Lungs: Lungs clear to auscultation. No wheezing, rhonchi, rales.. Heart: RRR without murmur, gallop, or rubs. No ectopy. Psychiatric:. Health Maintenance List HEPATITIS B(1 of 3 - 3-dose series) Never done HEPATITIS C SCREENING Never done HIV SCREENING Never done PAP TESTING Never done COVID-19 VACCINE(4 - Booster for Moderna series) due on 12/22/2021 INFLUENZA(1) due on 07/13/2022 DTAP,TDAP,TD(3 - Td or Tdap) due on 03/27/2032 Data reviewed Previous records, office notes ASSESSMENT/PLAN: 1. Depression, unspecified depression type - ICD9: 311, ICD10: F32.A (primary diagnosis) Begin fluoxetine. Patient has tolerated well in the past, at 20mg. Will follow up in 4-6 weeks, consider increasing to 20mg at that point if necessary. - FLUOXETINE 10 MG CAPSULE 2. Viral URI with cough - ICD9: 465.9, ICD10: J06.9 Refill given. - ALBUTEROL SULFATE HFA 90 MCG/ACTUATION AEROSOL INHALER 3. Encounter for immunization - ICD9: V03.89, ICD10: Z23 - INFLUENZA VACCINE QUADRIVALENT 6 MO - 64 YRS IM Tejal Villagran APRN.AVIONICS SUPERVISOR documented in this encounter [facility] 02-14-2022 Miscellaneous Notes Patient has been identified by name and date of : Yes Pending Prescriptions Disp Refills ESCITALOPRAM 10 MG TABLET 30 tablet 3 Sig: TAKE 1 TABLET BY MOUTH EVERY DAY NICOLE: Yes Lexapro 10/20/2021 qty 30 w/ 3 r/f Last OV 10/20/21 w/ Yuridia Prabhakar Dx anxiety/depression Last OV 09/04/2018 Dr Montano Physical RX INSTRUCTIONS: Tonya Akhtar LPN documented in this encounter [facility] Diagnosis Depression, unspecified depression type- Primary Viral URI with cough Acute upper respiratory infections of unspecified site Encounter for immunization Need for other specified prophylactic vaccination against single bacterial disease [facility] Diagnosis Depression, unspecified depression type [facility] Diagnosis Anxiety and depression- Primary Dysthymic disorder [facility] Diagnosis Well adult exam- Primary Routine general medical examination at a health care facility Anxiety and depression Dysthymic disorder Vitamin D deficiency Unspecified vitamin D deficiency Leg length discrepancy Unequal leg length (acquired) Headache disorder Headache Fatigue, unspecified type [facility] Diagnosis Iron deficiency- Primary Iron deficiency anemia, unspecified Elevated TSH Nonspecific abnormal results of thyroid function study [facility] Diagnosis Upper respiratory tract infection, unspecified type- Primary Acute otitis media, left Unspecified otitis media [facility] Diagnosis Myopia, bilateral- Primary Myopia [facility] Diagnosis COVID-19 virus infection- Primary Advice given about COVID-19 virus infection [facility] Diagnosis Weight gain- Primary Abnormal weight gain Encounter for immunization Need for other specified prophylactic vaccination against single bacterial disease documented in this encounter [facility] Reason for Referral Specialty Diagnoses / Procedures Referred By Jak segura Referred To Contact Diagnoses Viral URI with cough Tejal Villagran, JUDY.AVIONICS SUPERVISOR [address] [place] [address] Referral ID Status Reason Start Date Expiration Date Visits Re quested Visits Authorized [id number] Closed 1 1 Specialty Diagnoses / Procedures Referred By Jak t Referred To Contact [facility] Diagnoses Leg length discrepancy Procedures CONSULT TO PHYSICAL THERAPY PHYSICAL THERAPY EVALUATION HIGH COMPLEX 45 MINS Kevan Montano, DO [address] [place] [address] [facility] [place] [address] [place] [address] Referral ID Status Reason Start Date Expiration Date Visits Requested Visits Authorized [id number] Pending Review Auto-Generat ed Referral 12/08/2022 12/08/2023 1 1 Specialty Diagnoses / Procedures Referred By Jak segura Referred To Contact XR IMAGING Diagnoses Leg length discrepancy Procedures XR LEG FRONTAL SCANOGRAM LENGTHS BONE LENGTH STUDIES Kevan Montano, DO [address] [place] [address] Xr Imaging Referral ID Status Reason Start Date Expiration Date Visits Requested Visits Authorized [id number] Pending Review Auto-Generat ed Referral 12/08/2022 01/07/2024 1 1 Medications Administered Section Inactive Administered Medications - up to 3 most recent administrations Medication Order MAR Action Action Date Dose Rate Site PHENYLephrine 2.5 % 1 Drop (AK-DILATE, KALI-SYNEPHRINE) 1 Drop, BOTH EYES, ONCE, 1 dose, On Sun06/14/23 at 1330, FOR OPHTHALMIC USE ONLY PROTECT FROM LIGHT Given 06/14/2023 1:30 PM EDT 1 Drop proparacaine 0.5 % 1 Drop (ALCAINE) 1 Drop, BOTH EYES, ONCE, 1 dose, On Sun06/14/23 at 1330, FOR THE EYE Given 06/14/2023 1:30 PM EDT 1 Drop tropicamide 1 % 1 Drop (MYDRIACYL) 1 Drop, BOTH EYES, ONCE, 1 dose, On Sun06/14/23 at 1330, FOR THE EYE Given 06/14/2023 1:30 PM EDT 1 Drop Health Concerns Infection Onset Date Last Indicated Resolved Time COVID-19 Confirmed 07/31/2023 07/31/2023 Summary Purpose Family History No Family History Records Found Advance Directives No Advanced Directives Records Found Additional Source Comments Source Comments (unrecognize d section and content) In the event this informatio n is protected by the Federal Confidentiality of Alcohol and Drug Abuse Patient Records regulations: The Federal rules restrict any use of the information to criminally investigate or prosecute any alcohol or drug abuse patient.[facility] the event this information is protected by the Federal Confidentiality of Alcohol and Drug Abuse Patient Records regulations: The Federal rules restrict any use of the information to criminally investigate or prosecute any alcohol or drug abuse patient.[facility] the event this information is protected by the Federal Confidentiality of Alcohol and Drug Abuse Patient Records regulations: The Federal rules restrict any use of the information to criminally investigate or prosecute any alcohol or drug abuse patient.[facility] the event this information is protected by the Federal Confidentiality of Alcohol and Drug Abuse Patient Records regulations: The Federal rules restrict any use of the information to criminally investigate or prosecute any alcohol or drug abuse patient.[facility] the event this information is protected by the Federal Confidentiality of Alcohol and Drug Abuse Patient Records regulations: The Federal rules restrict any use of the information to criminally investigate or prosecute any alcohol or drug abuse patient.[facility] the event this information is protected by the Federal Confidentiality of Alcohol and Drug Abuse Patient Records regulations: The Federal rules restrict any use of the information to criminally investigate or prosecute any alcohol or drug abuse patient.[facility] the event this information is protected by the Federal Confidentiality of Alcohol and Drug Abuse Patient Records regulations: The Federal rules restrict any use of the information to criminally investigate or prosecute any alcohol or drug abuse patient.[facility] the event this information is protected by the Federal Confidentiality of Alcohol and Drug Abuse Patient Records regulations: The Federal rules restrict any use of the information to criminally investigate or prosecute any alcohol or drug abuse patient.[facility] the event this information is protected by the Federal Confidentiality of Alcohol and Drug Abuse Patient Records regulations: The Federal rules restrict any use of the information to criminally investigate or prosecute any alcohol or drug abuse patient.[facility] the event this information is protected by the Federal Confidentiality of Alcohol and Drug Abuse Patient Records regulations: The Federal rules restrict any use of the information to criminally investigate or prosecute any alcohol or drug abuse patient.[facility] the event this information is protected by the Federal Confidentiality of Alcohol and Drug Abuse Patient Records regulations: The Federal rules restrict any use of the information to criminally investigate or prosecute any alcohol or drug abuse patient.[facility] Reason for Visit (unrecogniz ed section and content) Reason Comments Depression Reason Comments Medication Follow-up Reason Comments Yearly Exam Reason Comments Results Reason Comments Cough ST, GONZALEZ x2 days Reason Comments Comprehensive Eye Exam Reason Comments Covid19 Concern Reason Comments weight gain Pt states since march has gain ed 15-20 lbs with no difference in activity or diet Care Teams (unrecognized sec tion and content) Stamp Classifier Relationship Specialty Start Date End Date Kevan Montano, DO [address] [place] [address] PCP - General Family Medicine 04/22/14 Stamp Classifier Relationship Specialty Start Date End Date Kevan Montano, DO [address] [place] [address] PCP - General Family Medicine 04/22/14 Stamp Classifier Relationship Specialty Start Date End Date Kevan Montano DO [address] [place] [address] PCP - General Family Medicine 04/22/14 Stamp Classifier Relationship Specialty Start Date End Date Kevan Montano DO [address] [place] [address] PCP - General Family Medicine 04/22/14 Stamp Classifier Relationship Specialty Start Date End Date Kevan Montano, DO [address] [place] [address] PCP - General Family Medicine 04/22/14 Stamp Classifier Relationship Specialty Start Date End Date Kevan Montano, DO [address] [place] [address] PCP - General Family Medicine 04/22/14 Stamp Classifier Relationship Specialty Start Date End Date Kevan Montano, DO [address] [place] [address] PCP - General Family Medicine 04/22/14 Stamp Classifier Relationship Specialty Start Date End Date Kevan Montano DO [address] [place] [address] PCP - General Family Medicine 04/22/14 Stamp Classifier Relationship Specialty Start Date End Date Kevan Montano DO [address] [place] [address] PCP - General Family Medicine 04/22/14 Stamp Classifier Relationship Specialty Start Date End Date Kevan Montano DO [address] [place] [address] PCP - General Family Medicine 04/22/14 INFORMATION SOURCE (unrecogn ized section and content) FOR RECORDS PERTAINING TO PATIENTS WHO ARE OR HAVE BEEN ENROLLED IN A CHEMICAL DEPENDENCY/SUBSTANCEABUSE PROGRAM, SOME INFORMATION MAY BE OMITTED. This clinical summary was aggregated from multiple sources. Caution should be exercised in using it in the provision of clinical care. This summary normalizes information from multiple sources, and as a consequence, information in this document may materially change the coding, format and clinical context of patient data. In addition, data may be omitted in some cases. CLINICAL DECISIONS SHOULD BE BASED ON THE PRIMARY CLINICAL RECORDS. [employer] provides no warranty or guarantee of the accuracy or completeness of information in this document.
[2023-11-08] MEDS: Pantoprazole Sodium 40 MG Tablet PO (01:01)
[2023-11-08] MEDS: Mag Hydrox/Al Hydrox/Simeth 30 ML UDC PO (01:06)
--- NOTE | 2023-11-08 01:39 | CT_ITS ---
We are attempting to reach an attending provider to discuss findings. An addendum with communication details will be sent when the communication is complete. STUDY: CT ABDOMEN AND PELVIS WITH CONTRAST REASON FOR EXAM: Female, 32 years old patient with abdominal pain. RADIATION DOSAGE (If Supplied By Facility): CTDIvol = ( 12.64 ) mGy, DLP = ( 552.84 ) mGycm TECHNIQUE: Transaxial images were obtained from the dome of the diaphragm to the symphysis pubis without oral contrast.100 ml of IV Isovue-300 was administered. Sagittal and coronal images were reconstructed. Individualized dose optimization techniques were used for this CT. COMPARISON: Prior comparison studies are not available for review at this time. FINDINGS: The visualized lung bases are unremarkable. The visualized portions of the heart are within normal limits. There is hepatomegaly with diffuse hepatic enlargement. Liver measures approximately 17.8 cm in greatest dimension. Normal gallbladder and extrahepatic biliary system. Normal spleen. Normal pancreas. Normal bilateral adrenal glands. Normal right kidney. Normal left kidney. Normal visualized stomach. There is no evidence for dilated bowel, ascites or pneumoperitoneum. Small bowel has a grossly normal appearance. Stool and/or gas is visible throughout the colon. There is a tubular, thick-walled appendix (>7mm), consistent with acute appendicitis. There is acute inflammation adjacent to the proximal appendix. There is appendicolith. Normal abdominal aorta. There is venous distention of the inferior vena cava (IVC). Normal retroperitoneum. Normal urinary bladder. Normal visualized uterus. 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 Normal abdominal wall. Normal osseous structures. CT/Abdomen/Pelvis W IV Cont ONLY IMPRESSION: Findings are consistent with acute uncomplicated appendicitis. Electronically Signed: Yamile Booth MD at 3:20 EST ,
[2023-11-08] MEDS: Dicyclomine 20 MG/2 ML Vial IM (03:00)
[2023-11-08] MEDS: 0.9% Normal Saline (1000mL) 1,000 ML 999 ML IV (03:45)
[2023-11-08] MEDS: Morphine 4 MG/ML Syringe IV (03:45)
[2023-11-08] MEDS: Ondansetron 4 MG/2 ML Vial IV (03:45)
[2023-11-08] MEDS: Piperacil/Tazobactam 3.375 GM in 0.9% Normal Saline (50mL MB+) 50 ML IV (03:46)
--- OUTSIDE RECORDS SUMMARY | 2023-11-08 04:17 | XMS RPT_ITS | CCD ---
Author Name Unknown Address [address] [place] [address] Organization [facility] Care Team Providers Care 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 Name Role Phone Kevan Montano DO Primary Care Provider KEVAN MONTANO Primary Care Unavailable KIANNA PATINO [...] Cat; Translations: [CATS] Allergy to substance 04-22-2014 [facility] Medications Current Medications Medication Drug Class(es) Dates [...] Drug Class(es) Dates Sig (Normalized) Sig (Original) [id number] 200 actuat albuterol 0.09 mg/actuat metered dose [...] 08:07-0400 Body weight 69.04 kg Jane Doherty SUPERVISOR PARTIAL DENTURE DEPARTMENT.TRUST ADMINISTRATIVE ASSISTANT Work Phone: [facility] 08-31-2023 08:07-0400 Diastolic blood pressure 64 mm[Hg] Jane Doherty SUPERVISOR PARTIAL DENTURE DEPARTMENT.TRUST ADMINISTRATIVE ASSISTANT Work Phone: [facility] 08-31-2023 08:07-0400 Heart rate 60 /min Jane Doherty SUPERVISOR PARTIAL DENTURE DEPARTMENT.TRUST ADMINISTRATIVE ASSISTANT Work Phone: [facility] 08-31-2023 08:07-0400 Respiratory rate 14 /min Jane Doherty SUPERVISOR PARTIAL DENTURE DEPARTMENT.TRUST ADMINISTRATIVE ASSISTANT Work Phone: [facility] 08-31-2023 08:07-0400 Systolic blood pressure 112 mm[Hg] Jane Doherty SUPERVISOR PARTIAL DENTURE DEPARTMENT.TRUST ADMINISTRATIVE ASSISTANT Work Phone: [facility] 04-13-2023 10:32-0400 Body temperature 98.29 [degF] Michi Tovar SUPERVISOR PARTIAL DENTURE DEPARTMENT.TRUST ADMINISTRATIVE ASSISTANT Work Phone: [facility] 04-13-2023 10:32-0400 Body weight 68.04 kg Michi Tovar SUPERVISOR PARTIAL DENTURE DEPARTMENT.TRUST ADMINISTRATIVE ASSISTANT Work Phone: [facility] 04-13-2023 10:32-0400 Diastolic blood pressure 72 mm[Hg] Michi Tovar SUPERVISOR PARTIAL DENTURE DEPARTMENT.TRUST ADMINISTRATIVE ASSISTANT Work Phone: [facility] 04-13-2023 10:32-0400 Heart rate 89 /min Michi Tovar SUPERVISOR PARTIAL DENTURE DEPARTMENT.TRUST ADMINISTRATIVE ASSISTANT Work Phone: [facility] 04-13-2023 10:32-0400 Respiratory rate 18 /min Michi Tovar SUPERVISOR PARTIAL DENTURE DEPARTMENT.TRUST ADMINISTRATIVE ASSISTANT Work Phone: [facility] 04-13-2023 10:32-0400 SaO2% (BldA) [Mass fraction] 97 % Michi Tovar SUPERVISOR PARTIAL DENTURE DEPARTMENT.TRUST ADMINISTRATIVE ASSISTANT Work Phone: [facility] 04-13-2023 10:32-0400 Systolic blood pressure 118 mm[Hg] Michi Tovar SUPERVISOR PARTIAL DENTURE DEPARTMENT.TRUST ADMINISTRATIVE ASSISTANT Work Phone: [facility] 12-08-2022 14:18-0500 Body height 161 cm Kevan Montano DO Work Phone: [facility] 12-08-2022 14:18-0500 Body temperature 98.71 [degF] Kevan Montano DO Work Phone: [facility] 12-08-2022 14:18-0500 Body weight 66.22 kg Kevan Montano DO Work Phone: [facility] 12-08-2022 14:18-0500 Diastolic blood pressure 70 mm[Hg] Kevan Montano DO Work Phone: [facility] 12-08-2022 14:18-0500 Heart rate 80 /min Kevan Montano DO Work Phone: [facility] 12-08-2022 14:18-0500 Respiratory rate 16 /min Kevan Montano DO Work Phone: [facility] 12-08-2022 14:18-0500 Systolic blood pressure 116 mm[Hg] Kevan Montano DO Work Phone: [facility] 10-23-2022 14:50-0500 Body weight 65.5 kg Tejal Villagran SUPERVISOR PARTIAL DENTURE DEPARTMENT.TRUST ADMINISTRATIVE ASSISTANT Work Phone: [facility] 10-23-2022 14:50-0500 Diastolic blood pressure 82 mm[Hg] Tejal Tyshawn SUPERVISOR PARTIAL DENTURE DEPARTMENT.TRUST ADMINISTRATIVE ASSISTANT Work Phone: [facility] 10-23-2022 14:50-0500 Heart rate 87 /min Tejal Tyshawn SUPERVISOR PARTIAL DENTURE DEPARTMENT.TRUST ADMINISTRATIVE ASSISTANT Work Phone: [facility] 10-23-2022 14:50-0500 Respiratory rate 16 /min Tejal Tyshawn SUPERVISOR PARTIAL DENTURE DEPARTMENT.TRUST ADMINISTRATIVE ASSISTANT Work Phone: [facility] 10-23-2022 14:50-0500 SaO2% (BldA) [Mass fraction] 95 % Tejal Tyshawn SUPERVISOR PARTIAL DENTURE DEPARTMENT.TRUST ADMINISTRATIVE ASSISTANT Work Phone: [facility] 10-23-2022 14:50-0500 Systolic blood pressure 112 mm[Hg] Tejal Tyshawn SUPERVISOR PARTIAL DENTURE DEPARTMENT.TRUST ADMINISTRATIVE ASSISTANT Work Phone: [facility] 08-10-2022 13:16-0400 Body weight 64.95 kg Tejal Tyshawn SUPERVISOR PARTIAL DENTURE DEPARTMENT.TRUST ADMINISTRATIVE ASSISTANT Work Phone: [facility] 08-10-2022 13:16-0400 Diastolic blood pressure 76 mm[Hg] Tejal Tyshawn SUPERVISOR PARTIAL DENTURE DEPARTMENT.TRUST ADMINISTRATIVE ASSISTANT Work Phone: [facility] 08-10-2022 13:16-0400 Heart rate 102 /min Tejal Tyshawn SUPERVISOR PARTIAL DENTURE DEPARTMENT.TRUST ADMINISTRATIVE ASSISTANT Work Phone: [facility] 08-10-2022 13:16-0400 Respiratory rate 18 /min Tejal Tyshawn SUPERVISOR PARTIAL DENTURE DEPARTMENT.TRUST ADMINISTRATIVE ASSISTANT Work Phone: [facility] 08-10-2022 13:16-0400 SaO2% (BldA) [Mass fraction] 98 % Tejal Tyshawn SUPERVISOR PARTIAL DENTURE DEPARTMENT.TRUST ADMINISTRATIVE ASSISTANT Work Phone: [facility] 08-10-2022 13:16-0400 Systolic blood pressure 102 mm[Hg] Tejal Tyshawn SUPERVISOR PARTIAL DENTURE DEPARTMENT.TRUST ADMINISTRATIVE ASSISTANT Work Phone: [facility] Encounters Encounter Date Encounter Type Care Provider Facility Start: 08-31-2023 End[facility] Start: 08-31-2023 End: 08-31-2023 Patient encounter procedure Janecameron Doherty SUPERVISOR PARTIAL DENTURE DEPARTMENT.TRUST ADMINISTRATIVE ASSISTANT Work Phone: [facility] [place] Procedures Date Procedure Procedure Detail Performing Clinician Start: 08-31-2023 INFLUENZA VACCINE, A GE 6 MO - 64 YR, QUADRIVALENT (AFLURIA, FLULAVAL, FLUZONE) Janecameron Doherty SUPERVISOR PARTIAL DENTURE DEPARTMENT.TRUST ADMINISTRATIVE ASSISTANT Work Phone: Start: 08-10-2022 INFLUENZA VACCINE QUADRIVALENT 6 MO - 64 YRS IM Tejal Tyshawn SUPERVISOR PARTIAL DENTURE DEPARTMENT.TRUST ADMINISTRATIVE ASSISTANT Work Phone: Plan of Treatment Date Care Activity Detail Author Start: 03-27-2032 Urine microalbumin profile [facility] Start: 01-07-2026 Urine microalbumin profile DTA P,TDAP,TD (2 - Td or Tdap) [facility] Start: 08-31-2024 Covid-19 Vaccine ( season) Covid-19 Vaccine ( season) [facility] Immunizations Immunization Date Immunization Notes Care Provider Jennifer marshall 08-31-2023 influenza, injectabl e, quadrivalent, contains preservative Jane Doherty SUPERVISOR PARTIAL DENTURE DEPARTMENT.TRUST ADMINISTRATIVE ASSISTANT Work Phone: [facility] 08-10-2022 influenza, injectabl e, quadrivalent, contains preservative Tejal Tyshawn SUPERVISOR PARTIAL DENTURE DEPARTMENT.TRUST ADMINISTRATIVE ASSISTANT Work Phone: [facility] 08-10-2022 influenza virus vaccine, unspecified formulation Bibiana Long SUPERVISOR PARTIAL DENTURE DEPARTMENT.TRUST ADMINISTRATIVE ASSISTANT Work Phone: [facility] 03-27-2022 tetanus toxoid, redu km diphtheria toxoid, and acellular pertussis vaccine, adsorbed Tejal Tyshawn SUPERVISOR PARTIAL DENTURE DEPARTMENT.TRUST ADMINISTRATIVE ASSISTANT Work Phone: [facility] 09-04-2018 influenza, injectabl e, quadrivalent, contains preservative Yuridia Tannhof SUPERVISOR PARTIAL DENTURE DEPARTMENT.TRUST ADMINISTRATIVE ASSISTANT Work Phone: [facility] Work Phone: 01-07-2016 tetanus toxoid, redu km diphtheria toxoid, and acellular pertussis vaccine, adsorbed Yuridia Tannhof SUPERVISOR PARTIAL DENTURE DEPARTMENT.TRUST ADMINISTRATIVE ASSISTANT Work Phone: [facility] Work Phone: 08-17-2015 influenza, injectabl e, quadrivalent, contains preservative Yuridia Figueredo SUPERVISOR PARTIAL DENTURE DEPARTMENT.TRUST ADMINISTRATIVE ASSISTANT Work Phone: [facility] Payers Date Payer Category Payer Unknown [employer] SS PPO [id number] 2023-Present [phone] [address] [place] [address] PPO [id number] 2023 Unknown [id number] 2021 Medicaid [place] [employer] [place] [employer] [id number] 2021-Present [phone] [address] [place] [address] Medicaid [id number] 2021 Medicaid [id number] 2021 Medicaid [id number] Social History Date Type Detail Facility Start: 04-22-2014 End: 08-10-2022 Tobacco smoking status NHIS Never smoked tobacco [facility] Start: 04-22-2014 End: 08-10-2022 Tobacco use and exposure Smokeless tobacco non-user [facility] Start: 11-25-2021 End: 08-31-2023 Alcohol intake Current non-drinker of alcohol (finding) [facility] Start: 1990 Sex Assigned At Not on file [facility] Start: 08-08-2022 End: 10-22-2022 History SDOH Alcohol Frequency 1 [facility] Start: 08-08-2022 End: 10-22-2022 History SDOH Alcohol Std Drinks 0 [facility] Start: 08-08-2022 End: 10-22-2022 History SDOH Social Connections Phone 5 [facility] Start: 08-08-2022 End: 10-22-2022 History SDOH Social Connections Membership 2 [facility] Start: 08-08-2022 History SDOH Social Connections Meetings 98 [facility] Start: 08-08-2022 End: 10-22-2022 History SDOH Social Connections Living 7 [facility] Start: 08-08-2022 End: 10-22-2022 History SDOH Physical Activity DPW 3 [facility] Start: 08-08-2022 History SDOH Financial 4 [facility] Start: 07-31-2022 End: 08-10-2022 Exposure to SARS-CoV-2 (event) Not sure [facility] Start: 10-22-2022 End: 06-14-2023 History of Social function [facility] Start: 10-22-2022 End: 06-14-2023 Social connection and isolation panel [facility] Do you belong to any clubs or organizations such as muslim groups, unions, fraternal or athletic groups, or school groups? No [facility] Are you now , , , , never or living with a partner? Never [facility] How often to you hav e a drink containing alcohol? Never [facility] How many standard dr inks containing alcohol do you have on a typical day? Patient does not drink [facility] Do you feel stress - tense, restless, nervous, or anxious, or unable to sleep at night because your mind is troubled all the time - these days [OSQ] To some extent [facility] (I/We) worried wheth er (my/our) food would run out before (I/we) got money to buy more. Never true [facility] Clinical Notes 02-14-2022 to 08-31-2023 Rakel Willis LPN - 08/31/2023 8:46 AM Jane Guerra APRN.GERA - 08/31/2023 8:09 AM Bibiana Reveles APRN.CNP - 08/01/2023 10:21 AM EDTPatient Instructions Note Date & Type Note Facility 08-31-2023 Note HNO ID: [id number] Author: Jane Doherty APRN.CNP Service: ? Author [...] Patient agreeable to treatment plan. Jane Manning APRN.TRUST ADMINISTRATIVE ASSISTANT [address] [place] [address] [facility] 08-31-2023 Nurse Note Pt receives flu vaccine in office today as ordered. Tolerated well. documented in this encounter [facility] 08-31-2023 History of Present illness Narrative Chief [...] agreeable to treatment plan. Jane Manning APRN.CNP [address] [place] [address] documented in this encounter [facility] 08-01-2023 Note HNO ID: [id number] Author: Bibiana Long APRN.CNP Service: ? Author Type: Nurse Practitioner Type: Progress Notes Filed: 08/01/2023 10:36 AM Note Text: Telemedicine Evaluation for COVID-19 Infection MyChart Zoom Video Visit was used for evaluation of this patient. I have communicated my name and active licensure. The patient's identity and physical location were verified at the time of this visit. Either the patient or their legal route service representative has been informed of the risks and benefits of -- and alternatives to -- treatment through a remote evaluation and consents to proceed with the evaluation remotely. SUBJECTIVE Nicki Hooper is a 32 year old female who presents with 4 days of symptoms that are worsening. Patient was seen in [facility] express clinic and tested for COVID19 and [...] a total of three tablets twice daily. Ldsqzpvaaxriida-Vcamielbp-XP (BROMFED DM) 2-30-10 mg/5 mL syrup 120 [...] risk of HIV-1 resistance development. Bibiana Long APRN.GERA August 01, 2023 10:36 AM This patient encounter involved the screening or treatment of novel coronavirus infection (COVID-19). [facility] 08-01-2023 History of Present illness Narrative Telemedicine Evaluation for COVID-19 Infection MyChart Zoom Video Visit was used for evaluation of this patient. I have communicated my name and active licensure. The patient's identity and physical location were verified at the time of this visit. Either the patient or their legal route service representative has been informed of the risks and benefits of -- and alternatives to -- treatment through a remote evaluation and consents to proceed with the evaluation remotely. SUBJECTIVE Nicki Hooper is a 32 year old female who presents with 4 days of symptoms that are worsening. Patient was seen in [facility] express clinic and tested for COVID19 and [...] a total of three tablets twice daily. Esfazhtragsoqnm-Smirvpgph-OT (BROMFED DM) 2-30-10 mg/5 mL syrup 120 [...] coronavirus infection (COVID-19). documented in this encounter [facility] 08-01-2023 Instructions Bibiana Long APRN.CNP - 08/01/2023 10:21 AM EDT Images from the original note were not included. Resources for Managing Anxiety During COVID Crisis https://www.virusanxiety.com https://www.cdc.gov/coronavirus/2 019-ncov/prepare/managing-stress- anxiety.html https://coronavirus.[place].gov/wps/ portal/gov/covid-19/home/resource s/jhcnulvio-eea-yqnhlp-coping-wit m-hye-vfgoc-19-pandemic www.psychologytoday.sliceX/us/blog/imelda mazariegosgj-ybwxt-fmljfhuppqpb//how- aqzcgk-ayuougpvpgg-dazjkom https://www.Examify/u s/blog/yru-jilgl-vlhkkio//1 5-eupz-nlrihrnyf-calm-positivity- now https://www.Examify/u s/blog/experimentations//7- tkexuzyhrce-tglaqamjvhh-cztuoekri g-adversity How to Protect Yourself & Others from COVID-19 Wash your hands often Wash your hands often with soap and water for at least 20 seconds especially after you have been in a public place, or after blowing your nose, coughing, or sneezing. If soap and water are not readily available, use a hand integrated circuits inspector that contains at least 60% alcohol. Cover [...] large groups of people (sporting events, concerts, GlocalReach alcocer, etc). Avoid unnecessary domestic and international travel, including travel through large international airports. If traveling, wipe down your airplane seat (and tray) with a disinfecting wipe. Office Visits If you have a fever, cough or shortness of breath, or are otherwise concerned you have COVID-19, we ask that you do not come to any [facility] facility without calling your primary care physician or speaking to a provider using a virtual visit using [facility] [employer]. You will be evaluated to determine if you require being seen in person or if you meet CDC guidelines for testing for COVID-19 based on symptoms, travel and exposures. If you meet criteria for testing, your [employer] provider or primary care physician will [...] at least 30 days of prescription medications, aycp-sbo-saodygk medicines, and supplies on hand in case [...] want to harm yourself or others: Call 991 if you feel like you want to harm yourself or others Visit the Disaster Distress Helpline call , [place] [address] Visit the National Domestic Violence Hotline or call and TTY Visit the National Suicide Prevention Lifeline or call and TTY or text Most importantly, don't panic. By following basic prevention measures such as hand hygiene and cover your cough, you are helping to keep yourself and others healthy. Additional information can be found on the CDC and [facility] web sites: https://www.cdc.gov/coronavirus/2 019-nCoV/index.html https://[facility].org/coron avirus Beginning Home Isolation Isolation is used [...] to your local emergency facility: Notify the lathe setup operator that you are seeking care for [...] you with PAXLOVID for the treatment of wtsb-jf-lkihkeup coronavirus disease (COVID-19) caused by the SARS-CoV-2 [...] make PAXLOVID available for the treatment of ogaa-yi-ctquhhgy COVID-19 in adults and children 12 years [...] virus. COVID-19 illnesses have ranged from very urci-qb-pnkngv, including illness resulting in . While information [...] available under EUA for the treatment of xczz-qs-aqgfpycm COVID-19 in adults and children 12 years [...] of using PAXLOVID to treat children with tidc-ll-iigkogti COVID-19. What is the most important information [...] the medicines you take, including prescription and kihw-bpk-puwwdlz medicines, vitamins, and herbal supplements. Your healthcare [...] morning or evening, depending on when you sweet pickled fruit maker your prescription, or as your healthcare provider [...] PAXLOVID is FDA-approved for the treatment of vhsk-kg-wttbgxjk COVID-19 in certain adults; however, there are not sufficient quantities of the approved presentations (i.e., dose packs) of PAXLOVID at this time. This EUA continues to authorize the emergency use of PAXLOVID for the approved patient population to ensure continued access in order to meet the public health need. VEKLURY (remdesivir) is FDA-approved for the treatment of fsgi-ga-qaxrlbwz COVID-19 in certain adults and children. Talk with your healthcare provider to see if VEKLURY is appropriate for you. For information on the emergency use of other medicines that are authorized by FDA to treat people with COVID-19, please go to https://www.fda.gov/emergency-pre axpymsand-wbk-kibiffjy/mcm-legal- bznnixnqyj-vie-peskcn-framework/e owjmiwjj-pmj-wgkuooffrhlxv. Your healthcare provider may talk with you [...] to FDA MedWatch at www.fda.gov/medwatch or call 7-276-EGD-3369 or you can report side effects to [employer]. at the contact information provided below. How [...] bottom of blister pack at this website: https://www.paxlovidlotexUpgrade, Inc.sliceX / or talk with your healthcare provider. Information on the authorized shelf-life extensions for PAXLOVID may also be found at https://www.fda.gov/emergency-pre aoprihepw-pjg-jbtqmqek/mcm-legal- hkykgvynng-ucn-yzwcfl-framework/e yrbmvgdvk-gjhuvh-jqlqlmmfg. How can I learn more about COVID-19? Ask your healthcare provider. Visit https://www.cdc.gov/COVID19. Contact your local or state public health department. What is an Emergency Use Authorization (EUA)? The [place] FDA has made PAXLOVID available under an emergency access mechanism called an Emergency Use Authorization (EUA). The EUA is supported by a Pediatric Intensive Physician of Health and Human Services (HHS) declaration [...] call the telephone number provided below. Website: wwwSS[employer] Telephone number: (1-877-c19-pack) Distributed by [employer] [place] [address] [id number] Revised: 03/2023 documented in this encounter [facility] 07-31-2023 Note HNO ID: [id number] Author: Michi Tovar APRN.TRUST ADMINISTRATIVE ASSISTANT Service: ? Author Type: Nurse Practitioner Type: Progress Notes Filed: 07/31/2023 9:52 AM Note Text: This note was created using Dtimeriter. Subjective Nicki Hooper is a 32 year old female. 32 year old female with PMH asthma and depression presents for illness. Acute onset 3 days ago +sore throat +fever +headache +cough +body aches Denies N/V/D Has used OTC analgesics Denies tobacco usage. The history is provided by the patient. No languages and literature instructor was used. URI She complains of cough. [...] There is no (more content not included)... [facility] 06-14-2023 Note HNO ID: [id number] Author: Kianna Patino OD Service: ? Author Type: REWINDER Type: Progress Notes Filed: 06/14/2023 1:28 PM [...] Patino, OD June 14, 2023 1:24 PM [facility] 06-14-2023 History of Present illness Narrative [...] 2023 1:24 PM documented in this encounter [facility] 04-13-2023 Note HNO ID: [id number] Author: RT Eufemia(R) Service: ? Author Type: Aerospace Medicine Physician Type: Progress Notes Filed: 04/13/2023 11:15 AM [...] RT Eufemia(R) April 13, 2023 11:07 AM [facility] 04-13-2023 Note HNO ID: [id number] Author: Michi Tovar APRN.TRUST ADMINISTRATIVE ASSISTANT Service: ? Author Type: Nurse Practitioner Type: [...] history is provided by the patient. No languages and literature instructor was used. Cough This is a recurrent [...] Abdominal: General: Abd (more content not included)... [facility] 04-13-2023 History of Present illness Narrative This note was created using Dtimeriter. Subjective Nicki Hooper is a 32 year [...] history is provided by the patient. No languages and literature instructor was used. Cough This is a recurrent [...] Michi Tovar APRN.GERA documented in this encounter [facility] 01-17-2023 Miscellaneous Notes Pt called back and results were given. Vanessa Akhtar LPN documented in this encounter [facility] 01-01-2023 Miscellaneous Notes Pt notified of results via Banjohart. Brittany Romo Ma Message left to return [...] Kevan Montano DO documented in this encounter [facility] 12-08-2022 Note HNO ID: [id number] Author: Kevan Montano DO Service: ? 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 - MAGNESIUM BLD 6. Fatigue, unspecified type - ICD9: 780.79, ICD10: R53.83 Recheck labs as ordered Kevan Montano DO To ER if develops chest pain, shortness of breath, or severe worsening of symptoms. Discussed risks, benefits, alternatives, and potential side effects of medications. Patient expressed understanding and agreed with the plan. Ynay Paiz (more content not included)... 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 - MAGNESIUM BLD 6. Fatigue, unspecified type - ICD9: 780.79, ICD10: R53.83 Recheck labs as ordered Kevan Montano DO To ER if develops chest pain, shortness of breath, or severe worsening of symptoms. Discussed risks, benefits, alternatives, and potential side effects of medications. Patient expressed understanding and agreed with the plan. Kevan Montano DO [address] [place] [address] documented in this encounter [facility] 10-23-2022 Note HNO ID: [id number] Author: Tejal Villagran APRN.TRUST ADMINISTRATIVE ASSISTANT Service: ? Author Type: Nurse Practitioner Type: [...] FLUOXETINE 20 MG CAPSULE Tejal Villagran APRN.GERA [facility] 10-23-2022 History of Present illness Narrative [...] - FLUOXETINE 20 MG CAPSULE Tejal Villagran APRN.TRUST ADMINISTRATIVE ASSISTANT documented in this encounter [facility] 10-04-2022 Miscellaneous Notes Last office visit: 08/10/22 F/u scheduled: none Brittany Romo Ma documented in this encounter [facility] 08-10-2022 History of Present illness Narrative Chief [...] [place] - 66 YRS IM Tejal Villagran APRN.TRUST ADMINISTRATIVE ASSISTANT documented in this encounter [facility] 02-14-2022 Miscellaneous Notes Patient has been identified [...] Tonya Akhtar LPN documented in this encounter [facility] Depression, unspecified depression type- Primary Viral URI with cough Acute upper respiratory infections of unspecified site Encounter for immunization Need for other specified prophylactic vaccination against single bacterial disease [facility] Diagnosis Depression, unspecified depression type [facility] Diagnosis Anxiety and depression- Primary Dysthymic disorder [facility] Diagnosis Well adult exam- Primary Routine general medical examination at a health care facility Anxiety and depression Dysthymic disorder Vitamin D deficiency Unspecified vitamin D deficiency Leg length discrepancy Unequal leg length (acquired) Headache disorder Headache Fatigue, unspecified type [facility] Diagnosis Iron deficiency- Primary Iron deficiency anemia, unspecified Elevated TSH Nonspecific abnormal results of thyroid function study [facility] Diagnosis Upper respiratory tract infection, unspecified type- Primary Acute otitis media, left Unspecified otitis media [facility] Diagnosis Myopia, bilateral- Primary Myopia [facility] Diagnosis COVID-19 virus infection- Primary Advice given about COVID-19 virus infection [facility] Diagnosis Weight gain- Primary Abnormal weight gain Encounter for immunization Need for other specified prophylactic vaccination against single bacterial disease documented in this encounter [facility] Reason for Referral Specialty Diagnoses / Procedures Referred By Jak segura Referred To Contact Diagnoses Viral URI with cough Tejal Villagran, JUDY.[employer] ADMINISTRATIVE ASSISTANT [address] [place] [address] Referral ID Status Reason Start Date Expiration Date Visits Re quested Visits Authorized [id number] Closed 1 1 Specialty Diagnoses / Procedures Referred By Jak t Referred To Contact [facility] Diagnoses Leg length discrepancy Procedures CONSULT TO PHYSICAL THERAPY PHYSICAL THERAPY EVALUATION HIGH COMPLEX 45 MINS Kevan Montano, DO [address] [place] [address] [facility] [address] [place] [address] Referral ID Status Reason Start Date Expiration Date Visits Requested Visits Authorized [id number] Pending Review Auto-Generat ed Referral 12/08/2022 12/08/2023 1 1 Specialty Diagnoses / Procedures Referred By Jak segura Referred To Contact XR IMAGING Diagnoses Leg length discrepancy Procedures XR LEG FRONTAL SCANOGRAM LENGTHS BONE LENGTH STUDIES Kevan Montano, DO [address] [place] [address] Xr Imaging Referral ID Status Reason Start Date Expiration Date Visits Requested Visits Authorized [id number] Pending Review Auto-Generat ed Referral 12/08/2022 01/07/2024 [...] or prosecute any alcohol or drug abuse patient.[facility] the event this information is protected by the Federal Confidentiality of Alcohol and Drug Abuse Patient Records regulations: The Federal rules restrict any use of the information to criminally investigate or prosecute any alcohol or drug abuse patient.[facility] the event this information is protected by the Federal Confidentiality of Alcohol and Drug Abuse Patient Records regulations: The Federal rules restrict any use of the information to criminally investigate or prosecute any alcohol or drug abuse patient.[facility] the event this information is protected by the Federal Confidentiality of Alcohol and Drug Abuse Patient Records regulations: The Federal rules restrict any use of the information to criminally investigate or prosecute any alcohol or drug abuse patient.[facility] the event this information is protected by the Federal Confidentiality of Alcohol and Drug Abuse Patient Records regulations: The Federal rules restrict any use of the information to criminally investigate or prosecute any alcohol or drug abuse patient.[facility] the event this information is protected by the Federal Confidentiality of Alcohol and Drug Abuse Patient Records regulations: The Federal rules restrict any use of the information to criminally investigate or prosecute any alcohol or drug abuse patient.[facility] the event this information is protected by the Federal Confidentiality of Alcohol and Drug Abuse Patient Records regulations: The Federal rules restrict any use of the information to criminally investigate or prosecute any alcohol or drug abuse patient.[facility] the event this information is protected by the Federal Confidentiality of Alcohol and Drug Abuse Patient Records regulations: The Federal rules restrict any use of the information to criminally investigate or prosecute any alcohol or drug abuse patient.[facility] the event this information is protected by the Federal Confidentiality of Alcohol and Drug Abuse Patient Records regulations: The Federal rules restrict any use of the information to criminally investigate or prosecute any alcohol or drug abuse patient.[facility] the event this information is protected by the Federal Confidentiality of Alcohol and Drug Abuse Patient Records regulations: The Federal rules restrict any use of the information to criminally investigate or prosecute any alcohol or drug abuse patient.[facility] the event this information is protected by the Federal Confidentiality of Alcohol and Drug Abuse Patient Records regulations: The Federal rules restrict any use of the information to criminally investigate or prosecute any alcohol or drug abuse patient.[facility] Reason for Visit (unrecogniz ed section and [...] Care Teams (unrecognized sec tion and content) 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 Relationship Specialty Start Date End Date Kevan Montano, DO [address] [place] [address] PCP - General Family Medicine 04/22/14 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 Relationship Specialty Start Date End Date Kevan Montano, DO [address] [place] [address] PCP - General Family Medicine 04/22/14 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 Relationship Specialty Start Date End Date Kevan Montano DO [address] [place] [address] PCP - General Family Medicine 04/22/14 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 Relationship Specialty Start Date End Date Kevan Montano DO [address] [place] [address] PCP - General Family Medicine 04/22/14 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 Relationship Specialty Start Date End Date Kevan Montano, DO [address] [place] [address] PCP - General Family Medicine 04/22/14 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 Relationship Specialty Start Date End Date Kevan Montano, DO [address] [place] [address] PCP - General Family Medicine 04/22/14 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 Relationship Specialty Start Date End Date Kevan Montano, DO [address] [place] [address] PCP - General Family Medicine 04/22/14 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 [employer] provides no warranty or guarantee of the accuracy or completeness of information in this document.
--- NOTE | 2023-11-08 06:10 | HP.PCM.SX_ITS ---
HPI - General General Date of Admission: 11/08/23 HPI Narrative TAWANA CAMILO, is a 32 F who presents With abdominal pain.Patient reports abdominal pain started yesterday at 6 PM.Patient reports that she did have nausea and vomiting yesterday. She denies any fevers or chills. She says the pain is in the right lower quadrant, does not radiate. [facility] Medical History (Updated 11/08/23 @ 06:[address] Guy Harrell MD) Asthma History of pneumonia Home Medications dicyclomine 10 mg capsule 20 mg (2 x 10 mg) PO Q6H PRN PRN abdominal pain #20 CAPSULES 11/08/23 [Rx Last Taken Unknown] pantoprazole 40 mg tablet,delayed release 40 mg PO BID 14 days #28 tabs 11/08/23 [Rx Last Taken Unknown] sucralfate 1 gram tablet 1 g PO .qid 10 days #40 tabs 11/08/23 [Rx Last Taken Unknown] Allergy/AdvReac Type Severity Reaction Status Date / Time cat dander Allergy Unknown Verified 11/07/23 22:44 Family History (Updated 11/26/19 @ 07:05 by Teresa You) Other CVA (cerebral vascular accident) Diabetes Hypertension Social History (Updated 10/15/20 @ 16:03 by Hollis RAMOS, PA) Smoking Status: Never smoker alcohol intake: current alcohol intake frequency: a few times a month Alcohol type: beer ROS Constitutional Constitutional: Denies anorexia, chills, fatigue or fever(s) Eyes Eyes: Denies blurry vision ENT HEENT: Denies abnormal hearing Cardiovascular Cardiovascular: Denies chest pain Respiratory/Chest Respiratory/Chest: Denies cough or dyspnea Gastrointestinal Gastrointestinal: Reports abdominal pain, nausea and vomiting; Denies coffee ground emesis Genitourinary Genitourinary: Denies change in urinary stream Musculoskeletal Musculoskeletal: Denies abnormal gait Integumentary Integumentary: Denies jaundice Neurologic Neurologic: Denies abnormal gait Psychiatric Psychiatric: Denies anxiety Vital Signs Vital Signs Vital Signs: 11/07/23 22:42 11/08/23 00:41 11/08/23 02:00 Temperature 97.8 F Temperature Source Temporal Pulse Rate 104 H 84 90 Respiratory Rate 18 16 Respiratory Effort Respiratory Depth Respiratory Pattern Blood Pressure 129/86 H 113/87 H Blood Pressure Mean 100 95 Blood Pressure Source Blood Pressure Position Blood Pressure Location Pulse Ox 98 99 98 Oxygen Delivery Method Room Air Room Air 11/08/23 04:00 11/08/23 04:25 11/08/23 04:19 Temperature 99.3 F H Temperature Source Oral Pulse Rate 82 95 Respiratory Rate 16 16 Respiratory Effort Normal Non-Labored Respiratory Depth Normal Respiratory Pattern Normal Blood Pressure 107/76 106/79 Blood Pressure Mean 86 88 Blood Pressure Source Monitor Blood Pressure Position Semi-Fowlers Blood Pressure Location Right Arm Pulse Ox 98 95 Oxygen Delivery Method Room Air Room Air 11/08/23 04:25 Temperature 99.3 F H Temperature Source Oral Pulse Rate 95 Respiratory Rate 16 Respiratory Effort Respiratory Depth Respiratory Pattern Blood Pressure 106/79 Blood Pressure Mean 88 Blood Pressure Source Blood Pressure Position Blood Pressure Location Pulse Ox 95 Oxygen Delivery Method Room Air Weight Weight: 148 lb 12.992 oz Body Mass Index (BMI) 26.3 Physical Exam Const oriented x3 and no apparent distress Resp normal respiratory effort Cardio regular rate and regular rhythm GI soft to palpation Palpation: tender RLQ Results Lab / Micro Data 11/07/23 23:13 11/07/23 23:13 Labs: Laboratory Results - last 24 hr 11/07/23 23:13: WBC 16.5 H, RBC 4.69, Hgb 13.1, Hct 39.2, MCV 83.6, MCH 27.9, MCHC 33.4, RDW Std Deviation 35.4, RDW Coeff of Janes 11.9, Plt Count 281, MPV 8.9, Immature Gran % (Auto) 0.400, Neut % (Auto) 82.4 H, Lymph % (Auto) 12.3 L, Sac % (Auto) 4.5, Eos % (Auto) 0.1, Baso % (Auto) 0.3, Absolute Neuts (auto) 13.6 H, Absolute Lymphs (auto) 2.03, Nucleated RBC % 0, Sodium 138, Potassium 3.7, Chloride 106, Carbon Dioxide 25.0, Anion Gap 7, BUN 8, Creatinine 0.64, Estim Creat Clear Calc 106.32, Est GFR (MDRD) Af Amer 140, Est GFR (MDRD) Non-Af 116, BUN/Creatinine Ratio 12.6, Glucose 117 H, Calcium 9.5, Total Bilirubin 1.00, AST 9 L, ALT 14, Alkaline Phosphatase 55, Total Protein 7.4, Albumin 3.8, Globulin 3.6, Albumin/Globulin Ratio 1.1, Lipase 26, Serum , Qual NEGAT RAIMUNDO [facility] Impression Gallbladder Ultrasound 11/07/23 23:02 IMPRESSION: 1. Hepatic steatosis. 2. No sonographic evidence for acute right upper quadrant abdominal disease. Electronically Signed: Yamile Booth MD at 0:23 EST , Abdomen/Pelvis CT 11/08/23 01:39 IMPRESSION: Findings are consistent with acute uncomplicated appendicitis. Electronically Signed: Yamile Booth MD at 3:20 EST Reading Location ID and State: [facility] / [place] , Service support , ADDENDUM: 11/08/23 0328 IMPRESSION: Findings are consistent with acute uncomplicated appendicitis. N.B. : The above Results were Read Back by Yamile Booth MD to Eugene Rm DO, and understanding confirmed on 11/08/2023 03:21:22 (ET). Electronically Signed: Yamile Booth MD at 3:20 EST , ADDENDUM: 11/08/23 0334 IMPRESSION: Findings are consistent with acute uncomplicated appendicitis. N.B. : The above Results were Read Back by Yamile Booth MD to Eugene Rm DO, and understanding confirmed on 11/08/2023 03:28:04 (ET). Electronically Signed: Yamile Booth MD at 3:20 EST , Assessment & Plan Assessment/Plan (1) Appendicitis, acute: QUALIFIERS: Acute appendicitis type: unspecified acute appendicitis type Qualified Code(s): K35.80 - Unspecified acute appendicitis PLAN: Patient presented with abdominal pain and had elevated white count. CT scan revealed acute appendicitis with appendicolith. I discussed laparoscopic appendectomy with the patient in detail. I discussed the risks including but not limited to bleeding, infection, injury other organs such as the bowel or bladder. Patient understands the risks and is willing to proceed. She was given antibiotics in the emergency room. She will be admitted after surgery. Guy Harrell MD Pager: [facility] [address] [place] [address] [place] [address] Office:
[2023-11-08] MEDS: Bupivacaine 0.25% 30 ML Vial (06:53)
--- NOTE | 2023-11-08 07:05 | OP.PCM_ITS ---
Report of Operation Date of Procedure: 11/08/23 Pre-Operative Diagnosis: Acute appendicitis Post-Operative Diagnosis: Acute appendicitis Surgery/Procedure Performed:: Laparoscopic appendectomy Description of Surgical Findings:: Inflamed appendix wound class contaminated Type of Anesthesia: General/Regional Specimen's removed: Appendix Estimated Blood Loss (mL): 5 Description of Procedure: The patient was brought into the operating room and general anesthesia was induced. The left arm was tucked and the abdomen was prepped and draped in usual sterile fashion. A small midline incision was made superior to the umbilicus and deepened to the level of the fascia. The fascia was elevated and incised. The peritoneum was also elevated and incised. A finger sweep was performed and a balloon trocar was placed into the abdomen and inflated. The abdomen was insufflated to 15 mmHg and the camera was inserted and the abdomen was inspected for any injuries upon entering the abdomen. There were none. The patient was placed in Trendelenburg position and a 5 mm ports placed in the left lower quadrant and suprapubic areas under direct visualization. Next using atraumatic bowel graspers the appendix was identified. The appendix was grasped and elevated and Enseal was used to take down the mesoappendix. A stapler was used to come across the base of the appendix. The appendix was then placed in Endo Catch bag and removed through the umbilical incision. The staple line was inspected and found to be hemostatic and intact. The 2 5 mm ports are removed under direct visualization. The balloon trocar was deflated and removed and all the air was removed from the abdomen. The umbilical incision fascia was closed with an 0 Vicryl [id number] suture. The incisions were then irrigated with saline and dried. Local anesthetic was injected into the incision sites. The skin incisions were then closed with interrupted 4-0 Monocryl suture and Steri- Strips. Bandages were applied and the patient was awoken and taken to PACU in stable condition. Patient tolerated the procedure well. Admit VTE Documentation VTE Mechan Device Prophylaxis: SCD's
--- OUTSIDE RECORDS SUMMARY | 2023-11-08 07:20 | XMS RPT_ITS | CCD ---
Author Name Unknown Address [address] [place] [address] Organization [facility] Care Team Providers Care Sleeping Car Conductor Name Role Phone Kevan Montano DO Primary [...] Cat; Translations: [CATS] Allergy to substance 04-22-2014 [facility] Medications Current Medications Medication Drug Class(es) [...] Drug Class(es) Dates Sig (Normalized) Sig (Original) [id number] 200 actuat albuterol 0.09 mg/actuat metered dose [...] 08:07-0400 Body weight 69.04 kg Jane Doherty MOTOR MECHANIC.PAINTING SUPERVISOR Work Phone: [facility] 08-31-2023 08:07-0400 Diastolic blood pressure 64 mm[Hg] Jane Doherty MOTOR MECHANIC.PAINTING SUPERVISOR Work Phone: [facility] 08-31-2023 08:07-0400 Heart rate 60 /min Jane Doherty MOTOR MECHANIC.PAINTING SUPERVISOR Work Phone: [facility] 08-31-2023 08:07-0400 Respiratory rate 14 /min Jane Doherty MOTOR MECHANIC.PAINTING SUPERVISOR Work Phone: [facility] 08-31-2023 08:07-0400 Systolic blood pressure 112 mm[Hg] Jane Doherty MOTOR MECHANIC.PAINTING SUPERVISOR Work Phone: [facility] 04-13-2023 10:32-0400 Body temperature 98.29 [degF] Michi Tovar MOTOR MECHANIC.PAINTING SUPERVISOR Work Phone: [facility] 04-13-2023 10:32-0400 Body weight 68.04 kg Michi Tovar MOTOR MECHANIC.PAINTING SUPERVISOR Work Phone: [facility] 04-13-2023 10:32-0400 Diastolic blood pressure 72 mm[Hg] Michi Tovar MOTOR MECHANIC.PAINTING SUPERVISOR Work Phone: [facility] 04-13-2023 10:32-0400 Heart rate 89 /min Michi Tovar MOTOR MECHANIC.PAINTING SUPERVISOR Work Phone: [facility] 04-13-2023 10:32-0400 Respiratory rate 18 /min Michi Tovar MOTOR MECHANIC.PAINTING SUPERVISOR Work Phone: [facility] 04-13-2023 10:32-0400 SaO2% (BldA) [Mass fraction] 97 % Mihci Tovar MOTOR MECHANIC.PAINTING SUPERVISOR Work Phone: [facility] 04-13-2023 10:32-0400 Systolic blood pressure 118 mm[Hg] Michi Tovar MOTOR MECHANIC.PAINTING SUPERVISOR Work Phone: [facility] 12-08-2022 14:18-0500 Body height 161 cm Kevan Montano DO Work Phone: [facility] 12-08-2022 14:18-0500 Body temperature 98.71 [degF] Kevan Montano DO Work Phone: [facility] 12-08-2022 14:18-0500 Body weight 66.22 kg Kevan Montano DO Work Phone: [facility] 12-08-2022 14:18-0500 Diastolic blood pressure 70 mm[Hg] Kevan Montano DO Work Phone: [facility] 12-08-2022 14:18-0500 Heart rate 80 /min Kevan Montano DO Work Phone: [facility] 12-08-2022 14:18-0500 Respiratory rate 16 /min Kevan Montano DO Work Phone: [facility] 12-08-2022 14:18-0500 Systolic blood pressure 116 mm[Hg] Kevan Montano DO Work Phone: [facility] 10-23-2022 14:50-0500 Body weight 65.5 kg Tejal Villagran MOTOR MECHANIC.PAINTING SUPERVISOR Work Phone: [facility] 10-23-2022 14:50-0500 Diastolic blood pressure 82 mm[Hg] Tejal Tyshawn MOTOR MECHANIC.PAINTING SUPERVISOR Work Phone: [facility] 10-23-2022 14:50-0500 Heart rate 87 /min Tejal Tyshawn MOTOR MECHANIC.PAINTING SUPERVISOR Work Phone: [facility] 10-23-2022 14:50-0500 Respiratory rate 16 /min Tejal Tyshawn MOTOR MECHANIC.PAINTING SUPERVISOR Work Phone: [facility] 10-23-2022 14:50-0500 SaO2% (BldA) [Mass fraction] 95 % Tejal Tyshawn MOTOR MECHANIC.PAINTING SUPERVISOR Work Phone: [facility] 10-23-2022 14:50-0500 Systolic blood pressure 112 mm[Hg] Tejal Tyshawn MOTOR MECHANIC.PAINTING SUPERVISOR Work Phone: [facility] 08-10-2022 13:16-0400 Body weight 64.95 kg Tejal Tyshawn MOTOR MECHANIC.PAINTING SUPERVISOR Work Phone: [facility] 08-10-2022 13:16-0400 Diastolic blood pressure 76 mm[Hg] Tejal Tyshawn MOTOR MECHANIC.PAINTING SUPERVISOR Work Phone: [facility] 08-10-2022 13:16-0400 Heart rate 102 /min Tejal Tyshawn MOTOR MECHANIC.PAINTING SUPERVISOR Work Phone: [facility] 08-10-2022 13:16-0400 Respiratory rate 18 /min Tejal Tyshawn MOTOR MECHANIC.PAINTING SUPERVISOR Work Phone: [facility] 08-10-2022 13:16-0400 SaO2% (BldA) [Mass fraction] 98 % Tejal Tyshawn MOTOR MECHANIC.PAINTING SUPERVISOR Work Phone: [facility] 08-10-2022 13:16-0400 Systolic blood pressure 102 mm[Hg] Tejal Tyshawn MOTOR MECHANIC.PAINTING SUPERVISOR Work Phone: [facility] Encounters Encounter Date Encounter Type Care Provider Facility Start: 08-31-2023 End: 09-01-2023 [facility] Facility:[facility] Start: 08-31-2023 End: 08-31-2023 Patient encounter procedure Janecameron Doherty MOTOR MECHANIC.PAINTING SUPERVISOR Work Phone: [facility] Procedures Date Procedure Procedure Detail Performing Clinician Start: 08-31-2023 INFLUENZA VACCINE, A GE 6 MO - 64 YR, QUADRIVALENT (AFLURIA, FLULAVAL, FLUZONE) Janecameron Doherty MOTOR MECHANIC.PAINTING SUPERVISOR Work Phone: Start: 08-10-2022 INFLUENZA VACCINE QUADRIVALENT 6 MO - 64 YRS IM Tejal Tyshawn MOTOR MECHANIC.PAINTING SUPERVISOR Work Phone: Plan of Treatment Date Care Activity Detail Author Start: 03-27-2032 Urine microalbumin profile [facility] Start: 01-07-2026 Urine microalbumin profile DTA P,TDAP,TD (2 - Td or Tdap) [facility] Start: 08-31-2024 Covid-19 Vaccine ( season) Covid-19 Vaccine ( season) [facility] Immunizations Immunization Date Immunization Notes Care Provider Jennifer marshall 08-31-2023 influenza, injectabl e, quadrivalent, contains preservative Jane Doherty MOTOR MECHANIC.PAINTING SUPERVISOR Work Phone: [facility] 08-10-2022 influenza, injectabl e, quadrivalent, contains preservative Tejal Tyshawn MOTOR MECHANIC.PAINTING SUPERVISOR Work Phone: [facility] 08-10-2022 influenza virus vaccine, unspecified formulation Bibiana Long MOTOR MECHANIC.PAINTING SUPERVISOR Work Phone: [facility] 03-27-2022 tetanus toxoid, redu km diphtheria toxoid, and acellular pertussis vaccine, adsorbed Tejal Tyshawn MOTOR MECHANIC.PAINTING SUPERVISOR Work Phone: [facility] 09-04-2018 influenza, injectabl e, quadrivalent, contains preservative Yuridia Tannhof MOTOR MECHANIC.PAINTING SUPERVISOR Work Phone: [facility] Work Phone: 01-07-2016 tetanus toxoid, redu km diphtheria toxoid, and acellular pertussis vaccine, adsorbed Yuridia Tannhof MOTOR MECHANIC.PAINTING SUPERVISOR Work Phone: [facility] Work Phone: 08-17-2015 influenza, injectabl e, quadrivalent, contains preservative Yuridia Figueredo MOTOR MECHANIC.PAINTING SUPERVISOR Work Phone: [facility] Payers Date Payer Category Payer Unknown [employer] PPO [id number] 2023-Present [phone] [address] [place] [address] PPO [id number] 2023 Unknown [id number] 2021 Medicaid [employer] [employer] [employer] [id number] 2021-Present [phone] [address] [place] [address] Medicaid [id number] 2021 Medicaid [id number] 2021 Medicaid [id number] Social History Date Type Detail Facility Start: 04-22-2014 End: 08-10-2022 Tobacco smoking status NHIS Never smoked tobacco [facility] Start: 04-22-2014 End: 08-10-2022 Tobacco use and exposure Smokeless tobacco non-user [facility] Start: 11-25-2021 End: 08-31-2023 Alcohol intake Current non-drinker of alcohol (finding) [facility] Start: 1990 Sex Assigned At Not on file C [facility] Start: 08-08-2022 End: 10-22-2022 History SDOH Alcohol Frequency 1 [facility] Start: 08-08-2022 End: 10-22-2022 History SDOH Alcohol Std Drinks 0 [facility] Start: 08-08-2022 End: 10-22-2022 History SDOH Social Connections Phone 5 [facility] Start: 08-08-2022 End: 10-22-2022 History SDOH Social Connections Membership 2 [facility] Start: 08-08-2022 History SDOH Social Connections Meetings 98 [facility] Start: 08-08-2022 End: 10-22-2022 History SDOH Social Connections Living 7 [facility] Start: 08-08-2022 End: 10-22-2022 History SDOH Physical Activity DPW 3 [facility] Start: 08-08-2022 History SDOH Financial 4 [facility] Start: 07-31-2022 End: 08-10-2022 Exposure to SARS-CoV-2 (event) Not sure [facility] Start: 10-22-2022 End: 06-14-2023 History of Social function [facility] Start: 10-22-2022 End: 06-14-2023 Social connection and isolation panel [facility] Do you belong to any clubs or organizations such as anglican groups, unions, fraternal or athletic groups, or school groups? No [facility] Are you now , , , , never or living with a partner? Never [facility] How often to you hav e a drink containing alcohol? Never [facility] How many standard dr inks containing alcohol do you have on a typical day? Patient does not drink [facility] Do you feel stress - tense, restless, nervous, or anxious, or unable to sleep at night because your mind is troubled all the time - these days [OSQ] To some extent [facility] (I/We) worried wheth er (my/our) food would run out before (I/we) got money to buy more. Never true [facility] Clinical Notes 02-14-2022 to 08-31-2023 Rakel Willis LPN - 08/31/2023 8:46 AM Jane Guerra APRN.GERA - 08/31/2023 8:09 AM Bibiana Reveles APRN.CNP - 08/01/2023 10:21 AM EDTPatient Instructions Note Date & Type Note Facility 08-31-2023 Note HNO ID: [id number] Author: Jane Doherty APRN.CNP Service: ? Author [...] Patient agreeable to treatment plan. Jane Manning APRN.PAINTING SUPERVISOR [address] [place] [address] [facility] 08-31-2023 Nurse Note Pt receives flu vaccine in office today as ordered. Tolerated well. documented in this encounter [facility] 08-31-2023 History of Present illness Narrative Chief [...] agreeable to treatment plan. Jane Manning APRN.CNP [address] [place] [address] documented in this encounter [facility] 08-01-2023 Note HNO ID: [id number] Author: Bibiana Long APRN.CNP Service: ? Author Type: Nurse Practitioner Type: Progress Notes Filed: 08/01/2023 10:36 AM Note Text: Telemedicine Evaluation for COVID-19 Infection MyChart Zoom Video Visit was used for evaluation of this patient. I have communicated my name and active licensure. The patient's identity and physical location were verified at the time of this visit. Either the patient or their legal floor representative has been informed of the risks and benefits of -- and alternatives to -- treatment through a remote evaluation and consents to proceed with the evaluation remotely. SUBJECTIVE Nicki Hooper is a 32 year old female who presents with 4 days of symptoms that are worsening. Patient was seen in [facility] express clinic and tested for COVID19 [...] a total of three tablets twice daily. Ggqybynvdyzjhri-Arnqntlih-QE (BROMFED DM) 2-30-10 mg/5 mL syrup 120 [...] or treatment of novel coronavirus infection (COVID-19). [facility] 08-01-2023 History of Present illness Narrative Telemedicine Evaluation for COVID-19 Infection MyChart Zoom Video Visit was used for evaluation of this patient. I have communicated my name and active licensure. The patient's identity and physical location were verified at the time of this visit. Either the patient or their legal floor representative has been informed of the risks and benefits of -- and alternatives to -- treatment through a remote evaluation and consents to proceed with the evaluation remotely. SUBJECTIVE Nicki Hooper is a 32 year old female who presents with 4 days of symptoms that are worsening. Patient was seen in [facility] express clinic and tested for COVID19 [...] a total of three tablets twice daily. Kcqjfyoldilvfau-Iucrksvqj-YR (BROMFED DM) 2-30-10 mg/5 mL syrup 120 [...] coronavirus infection (COVID-19). documented in this encounter [facility] 08-01-2023 Instructions Bibiana Long APRN.CNP - 08/01/2023 10:21 AM EDT Images from the original note were not included. Resources for Managing Anxiety During COVID Crisis https://www.virusanxiety.com https://www.cdc.gov/coronavirus/2 019-ncov/prepare/managing-stress- anxiety.html https://coronavirus.[place].gov/wps/ portal/gov/covid-19/home/resource s/qtfdrqkgq-wtw-dnxlmf-coping-wit l-gfo-mwvbg-19-pandemic www.psychologytoday.ViaView/us/blog/imelda mazariegospu-xbghw-sxozhqooddho//how- vftaij-dztwepwotou-skpuncb https://www.hipix/u s/blog/ims-rruoq-ztkcecl//1 5-irju-qrjrewbix-calm-positivity- now https://www.hipix/u s/blog/experimentations//7- cyjyljjzvis-skhujcafixt-mosnypjma g-adversity How to Protect Yourself & Others from COVID-19 Wash your hands often Wash your hands often with soap and water for at least 20 seconds especially after you have been in a public place, or after blowing your nose, coughing, or sneezing. If soap and water are not readily available, use a hand umbrella supervisor that contains at least 60% alcohol. Cover [...] large groups of people (sporting events, concerts, [employer] alcocer, etc). Avoid unnecessary domestic and international travel, including travel through large international airports. If traveling, wipe down your airplane seat (and tray) with a disinfecting wipe. Office Visits If you have a fever, cough or shortness of breath, or are otherwise concerned you have COVID-19, we ask that you do not come to any [facility] facility without calling your primary care physician or speaking to a provider using a virtual visit using [facility] Mel[employer]ium. You will be evaluated to determine if you require being seen in person or if you meet CDC guidelines for testing for COVID-19 based on symptoms, travel and exposures. If you meet criteria for testing, your [employer] provider or primary care physician will [...] at least 30 days of prescription medications, fgkh-irq-tnkjtye medicines, and supplies on hand in case [...] want to harm yourself or others: Call 741 if you feel like you want to harm yourself or others Visit the Disaster Distress Helpline call , [place] [address] Visit the National Domestic Violence Hotline or call and TTY Visit the National Suicide Prevention Lifeline or call and TTY or text Most importantly, don't panic. By following basic prevention measures such as hand hygiene and cover your cough, you are helping to keep yourself and others healthy. Additional information can be found on the CDC and [facility] web sites: https://www.cdc.gov/coronavirus/2 019-nCoV/index.html https://[facility].org/coron avirus Beginning Home Isolation Isolation is [...] to your local emergency facility: Notify the sewing machine operator floorperson that you are seeking care for someone [...] you with PAXLOVID for the treatment of opsc-gg-vghtpwrb coronavirus disease (COVID-19) caused by the SARS-CoV-2 [...] make PAXLOVID available for the treatment of vwwj-qw-poyodoqw COVID-19 in adults and children 12 years [...] virus. COVID-19 illnesses have ranged from very vwdu-zv-fuzkbb, including illness resulting in . While information [...] available under EUA for the treatment of dobg-wu-xxomomzk COVID-19 in adults and children 12 years [...] of using PAXLOVID to treat children with osdr-yq-fxxmqpub COVID-19. What is the most important information [...] the medicines you take, including prescription and xwlw-gpu-uhxdtfs medicines, vitamins, and herbal supplements. Your healthcare [...] morning or evening, depending on when you olive picker your prescription, or as your healthcare [...] PAXLOVID is FDA-approved for the treatment of xyhx-qs-vrupljfy COVID-19 in certain adults; however, there are not sufficient quantities of the approved presentations (i.e., dose packs) of PAXLOVID at this time. This EUA continues to authorize the emergency use of PAXLOVID for the approved patient population to ensure continued access in order to meet the public health need. VEKLURY (remdesivir) is FDA-approved for the treatment of kzye-ai-zfdtrbay COVID-19 in certain adults and children. Talk with your healthcare provider to see if VEKLURY is appropriate for you. For information on the emergency use of other medicines that are authorized by FDA to treat people with COVID-19, please go to https://www.fda.gov/emergency-pre elomlqqdx-jyr-xbszrvke/mcm-legal- ppugdzyskk-ntu-bkaxki-framework/e ktynxpwv-rgr-ipnbocxlmkpum. Your healthcare provider may talk with you [...] to FDA MedWatch at www.fda.gov/medwatch or call 2-205-XVW-5479 or you can report side effects to [employer]. at the contact information provided below. How [...] bottom of blister pack at this website: https://www.paxlovidlotexAquto.ViaView / or talk with your healthcare provider. Information on the authorized shelf-life extensions for PAXLOVID may also be found at https://www.fda.gov/emergency-pre kotxcvvzy-ivr-qkectwaa/mcm-legal- ahakygultz-csm-mtpovq-framework/e bsznsfsuy-kwqqit-ymelnwncb. How can I learn more about COVID-19? Ask your healthcare provider. Visit https://www.cdc.gov/COVID19. Contact your local or state public health department. What is an Emergency Use Authorization (EUA)? The [place] FDA has made PAXLOVID available under an emergency access mechanism called an Emergency Use Authorization (EUA). The EUA is supported by a [place] Boxer of Health and Human Services (HHS) declaration [...] call the telephone number provided below. Website: [employer] Telephone number: (1-877-c19-pack) Distributed by [employer] [place] [address] [id number] Revised: 03/2023 documented in this encounter [facility] 07-31-2023 Note HNO ID: [id number] Author: Michi Tovar APRN.PAINTING SUPERVISOR Service: ? Author Type: Nurse Practitioner Type: Progress Notes Filed: 07/31/2023 9:52 AM Note Text: This note was created using JG Real Estateriter. Subjective Nicki Hooper is a 32 year old female. 32 year old female with PMH asthma and depression presents for illness. Acute onset 3 days ago +sore throat +fever +headache +cough +body aches Denies N/V/D Has used OTC analgesics Denies tobacco usage. The history is provided by the patient. No russian language instructor was used. URI She complains of [...] There is no (more content not included)... [facility] 06-14-2023 Note HNO ID: [id number] Author: Kianna Patino OD Service: ? Author Type: BRAZER ASSEMBLER Type: Progress Notes Filed: 06/14/2023 1:28 PM [...] Patino, OD June 14, 2023 1:24 PM [facility] 06-14-2023 History of Present illness Narrative 1. [...] 2023 1:24 PM documented in this encounter [facility] 04-13-2023 Note HNO ID: [id number] Author: RT Eufemia(R) Service: ? Author Type: Machine Iii Coremaker Type: Progress Notes Filed: 04/13/2023 11:15 AM [...] RT Eufemia(R) April 13, 2023 11:07 AM [facility] 04-13-2023 Note HNO ID: [id number] Author: Michi Tovar APRN.PAINTING SUPERVISOR Service: ? Author Type: Nurse Practitioner [...] history is provided by the patient. No russian language instructor was used. Cough This is a [...] Abdominal: General: Abd (more content not included)... [facility] 04-13-2023 History of Present illness Narrative This note was created using JG Real Estateriter. Subjective Nicki Hooper is a 32 year [...] history is provided by the patient. No russian language instructor was used. Cough This is a [...] Michi Tovar APRN.GERA documented in this encounter [facility] 01-17-2023 Miscellaneous Notes Pt called back and results were given. Vanessa Akhtar LPN documented in this encounter [facility] 01-01-2023 Miscellaneous Notes Pt notified of results via [employer]. Brittany Romo Ma Message left to return [...] Kevan Montano DO documented in this encounter [facility] 12-08-2022 Note HNO ID: [id number] Author: Kevan Montano DO Service: ? 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 - MAGNESIUM BLD 6. Fatigue, unspecified type - ICD9: 780.79, ICD10: R53.83 Recheck labs as ordered Kevan Montano DO To ER if develops chest pain, shortness of breath, or severe worsening of symptoms. Discussed risks, benefits, alternatives, and potential side effects of medications. Patient expressed understanding and agreed with the plan. Yany Paiz (more content not included)... 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 - MAGNESIUM BLD 6. Fatigue, unspecified type - ICD9: 780.79, ICD10: R53.83 Recheck labs as ordered Kevan Montano DO To ER if develops chest pain, shortness of breath, or severe worsening of symptoms. Discussed risks, benefits, alternatives, and potential side effects of medications. Patient expressed understanding and agreed with the plan. Kevan Montano DO [address] [place] [address] documented in this encounter [facility] 10-23-2022 Note HNO ID: [id number] Author: Tejal Villagran APRN.PAINTING SUPERVISOR Service: ? Author Type: Nurse Practitioner [...] FLUOXETINE 20 MG CAPSULE Tejal Villagran APRN.GERA [facility] 10-23-2022 History of Present illness Narrative Chief [...] - FLUOXETINE 20 MG CAPSULE Tejal Villagran APRN.PAINTING SUPERVISOR documented in this encounter [facility] 10-04-2022 Miscellaneous Notes Last office visit: 08/10/22 F/u scheduled: none Brittany Romo Ma documented in this encounter [facility] 08-10-2022 History of Present illness Narrative Chief [...] MO - 66 YRS IM Tejal Villagran APRN.PAINTING SUPERVISOR documented in this encounter [facility] 02-14-2022 Miscellaneous Notes Patient has been identified [...] Tonya Akhtar LPN documented in this encounter [facility] Depression, unspecified depression type- Primary Viral URI with cough Acute upper respiratory infections of unspecified site Encounter for immunization Need for other specified prophylactic vaccination against single bacterial disease [facility] Diagnosis Depression, unspecified depression type [facility] Diagnosis Anxiety and depression- Primary Dysthymic disorder [facility] Diagnosis Well adult exam- Primary Routine general medical examination at a health care facility Anxiety and depression Dysthymic disorder Vitamin D deficiency Unspecified vitamin D deficiency Leg length discrepancy Unequal leg length (acquired) Headache disorder Headache Fatigue, unspecified type [facility] Diagnosis Iron deficiency- Primary Iron deficiency anemia, unspecified Elevated TSH Nonspecific abnormal results of thyroid function study [facility] Diagnosis Upper respiratory tract infection, unspecified type- Primary Acute otitis media, left Unspecified otitis media [facility] Diagnosis Myopia, bilateral- Primary Myopia [facility] Diagnosis COVID-19 virus infection- Primary Advice given about COVID-19 virus infection [facility] Diagnosis Weight gain- Primary Abnormal weight gain Encounter for immunization Need for other specified prophylactic vaccination against single bacterial disease documented in this encounter [facility] Reason for Referral Specialty Diagnoses / Procedures Referred By Jak segura Referred To Contact Diagnoses Viral URI with cough Tejal Villagran, JUDY.PAINTING SUPERVISOR [address] [place] [address] Referral ID Status Reason Start Date Expiration Date Visits Re quested Visits Authorized [id number] Closed 1 1 Specialty Diagnoses / Procedures Referred By Jak t Referred To Contact [facility] Diagnoses Leg length discrepancy Procedures CONSULT TO PHYSICAL THERAPY PHYSICAL THERAPY EVALUATION HIGH COMPLEX 45 MINS Kevan Montano, DO [address] [place] [address] [facility] [place] [address] [place] [address] Referral ID Status Reason Start Date Expiration Date Visits Requested Visits Authorized [id number] Pending Review Auto-Generat ed Referral 12/08/2022 12/08/2023 1 1 Specialty Diagnoses / Procedures Referred By Jak segura Referred To Contact XR IMAGING Diagnoses Leg length discrepancy Procedures XR LEG FRONTAL SCANOGRAM LENGTHS BONE LENGTH STUDIES Kevan Montano, DO [address] [place] [address] Xr Imaging Referral ID Status Reason Start Date Expiration Date Visits Requested Visits Authorized [id number] Pending Review Auto-Generat ed Referral 12/08/2022 01/07/2024 [...] or prosecute any alcohol or drug abuse patient.[facility] the event this information is protected by the Federal Confidentiality of Alcohol and Drug Abuse Patient Records regulations: The Federal rules restrict any use of the information to criminally investigate or prosecute any alcohol or drug abuse patient.[facility] the event this information is protected by the Federal Confidentiality of Alcohol and Drug Abuse Patient Records regulations: The Federal rules restrict any use of the information to criminally investigate or prosecute any alcohol or drug abuse patient.[facility] the event this information is protected by the Federal Confidentiality of Alcohol and Drug Abuse Patient Records regulations: The Federal rules restrict any use of the information to criminally investigate or prosecute any alcohol or drug abuse patient.[facility] System[facility] the event this information is protected by the Federal Confidentiality of Alcohol and Drug Abuse Patient Records regulations: The Federal rules restrict any use of the information to criminally investigate or prosecute any alcohol or drug abuse patient.[facility] SystemIn the event this information is protected by the Federal Confidentiality of Alcohol and Drug Abuse Patient Records regulations: The Federal rules restrict any use of the information to criminally investigate or prosecute any alcohol or drug abuse patient.[facility] System[facility] the event this information is protected by the Federal Confidentiality of Alcohol and Drug Abuse Patient Records regulations: The Federal rules restrict any use of the information to criminally investigate or prosecute any alcohol or drug abuse patient.[facility] SystemIn the event this information is protected by the Federal Confidentiality of Alcohol and Drug Abuse Patient Records regulations: The Federal rules restrict any use of the information to criminally investigate or prosecute any alcohol or drug abuse patient.[facility] SystemIn the event this information is protected by the Federal Confidentiality of Alcohol and Drug Abuse Patient Records regulations: The Federal rules restrict any use of the information to criminally investigate or prosecute any alcohol or drug abuse patient.[facility] SystemIn the event this information is protected by the Federal Confidentiality of Alcohol and Drug Abuse Patient Records regulations: The Federal rules restrict any use of the information to criminally investigate or prosecute any alcohol or drug abuse patient.[facility] SystemIn the event this information is protected by the Federal Confidentiality of Alcohol and Drug Abuse Patient Records regulations: The Federal rules restrict any use of the information to criminally investigate or prosecute any alcohol or drug abuse patient.[facility] Reason for Visit (unrecogniz ed section and [...] Care Teams (unrecognized sec tion and content) Sleeping Car Conductor Relationship Specialty Start Date End Date Kevan Montano, DO [address] [place] [address] PCP - General Family Medicine 04/22/14 Sleeping Car Conductor Relationship Specialty Start Date End Date Kevan Montano, DO [address] [place] [address] PCP - General Family Medicine 04/22/14 Sleeping Car Conductor Relationship Specialty Start Date End Date Kevan Montano DO [address] [place] [address] PCP - General Family Medicine 04/22/14 Sleeping Car Conductor Relationship Specialty Start Date End Date Kevan Montano DO [address] [place] [address] PCP - General Family Medicine 04/22/14 Sleeping Car Conductor Relationship Specialty Start Date End Date Kevan Montano, DO [address] [place] [address] PCP - General Family Medicine 04/22/14 Sleeping Car Conductor Relationship Specialty Start Date End Date Kevan Montano, DO [address] [place] [address] PCP - General Family Medicine 04/22/14 Sleeping Car Conductor Relationship Specialty Start Date End Date Kevan Montano, DO [address] [place] [address] PCP - General Family Medicine 04/22/14 Sleeping Car Conductor Relationship Specialty Start Date End Date Kevan Montano DO [address] [place] [address] PCP - General Family Medicine 04/22/14 Sleeping Car Conductor Relationship Specialty Start Date End Date Kevan Montano DO [address] [place] [address] PCP - General Family Medicine 04/22/14 Sleeping Car Conductor Relationship Specialty Start Date End Date Kevan Montano DO [address] [place] [address] PCP - General Family Medicine 04/22/14 INFORMATION [...] BE BASED ON THE PRIMARY CLINICAL RECORDS. [employer] provides no warranty or guarantee of the accuracy or completeness of information in this document.
[2023-11-08] MEDS: 0.9% Normal Saline (1000mL) 1,000 ML 60 ML IV (07:31)
[2023-11-08] MEDS: Acetaminophen 325 MG Tablet 650 MG PO (08:02)
--- NOTE | 2023-11-08 12:17 | DCINST_ITS ---
Discharge Instructions Procedure Appendectomy Diet Discharge Diet: Light diet - advance as tolerated Activity Discharge Activity: May Not Drive (for 2-3 days or while taking narcotic pain medications.) and May Shower May shower in (days): 1 Lifting Restrictions: 20 lbs for 2 weeks Dressing / Incision Call your doctor if your incision/area has: Continuous Slow Oozing, Sudden Increased Bleeding, Increased Pain/ Swelling, Increased Redness and Foul Smelling Discharge Call your doctor if you observe: Fever of 101 or Higher Suture Line Care: Avoid Pulling/Pushing and Avoid Pinching/Bending Remove Dressing in: 2 days (Remove clear dressing in 2 days, remove Steri-Strips in 7 to 10 days) Cleanse incision/area with: Soap & Water Additional Dressing/Incision Instructions:: Keep dressing clean and dry. Change or remove dressing in 2 days. Leave steri strips for 1 week. May protect with a gauze bandaid. Follow Up Care Please Follow Up With: Guy Harrell MD When: Please call to schedule 2 week follow up appointment. [phone] Test Results: Test results from this visit will be discussed in further detail at your follow- up appointment, if applicable. Discharge Plan Admission Admit Date/Time: 11/08/23 07:06 Attending Provider: Guy Harrell Primary Care Provider: Kevan Lawler Instructions Patient Instructions: Abdominal Pain, ED Peptic Ulcer Discharge Orders/Prescriptions Prescriptions: New pantoprazole 40 mg tablet,delayed release (DR/EC) 40 mg PO BID 14 Days Qty: 28 0RF sucralfate 1 gram tablet 1 g PO .qid 10 Days Qty: 40 0RF dicyclomine 10 mg capsule 20 mg PO Q6H PRN PRN (Reason: abdominal pain) Qty: 20 0RF acetaminophen 325 mg Tablet 650 mg PO Q4H PRN PRN (Reason: Pain 1-10 Or Fever) Qty: 0 0RF oxycodone 5 mg Tablet 5 - 10 mg PO Q4H PRN PRN (Reason: Pain Score 4-10) 5 Days Qty: 15 0RF Referrals / Follow Up: Kevan Lawler, [Primary Care Provider] - As soon as possible Disposition Disposition (needs filled in before D/C Order can be placed): Home, Self Care
== END 2023-11-08 12:57 | disposition home or self-care (01) ==
LOC: ED 11-08 03:20 → ICU 11-08 05:14
PROVIDERS: Emergency Medicine; Admitting Provider Surgery; Emergency Provider Student in an Organized Health Care Education/Training Program; PCP Student in an Organized Health Care Education/Training Program; Visit Provider Surgery
PROC: 0DTJ4ZZ Resection of Appendix, Percutaneous Endoscopic Approach (ICD-10-PCS; CPT 44970; principal; 2023-11-08 06:00)
DX: K35.80 Unspecified acute appendicitis (principal); J45.909 Unspecified asthma, uncomplicated; Z79.899 Other long term (current) drug therapy
CPT/HCPCS: 44970; 00840; 74177; 76705; 80053; 83690; 84703; 85025; 88304; 96361; 96365; 96372; 96375; 96376; 99221; 99284; J7030; Q9967; C1760; G0378; J2405